=== PATIENT | female | born 1990 | race Caucasian/White ===

== ENCOUNTER 2016-12-19 00:15 | Emergency (ER) | payer SELFPAY ==
[2016-12-19] MEDS ORDERED: NORMAL SALINE 1000 ML 1,000 ML IV ONE (02:34)
[2016-12-19] MEDS ORDERED: ONDANSETRON HCL INJ/PF 4 MG/2 ML SDV IV ONE (02:34)
--- NOTE | 2016-12-19 02:37 | ER Document Report ---
ED General - General Chief Complaint: Toothache Stated Complaint: TOOTHACHE WITH NAUSEA AND VOMITING Time Seen by Provider: 12/19/16 02:24 Notes: Patient is a 26-year-old female who comes emergency department for chief complaint of pain in her left lower tooth where she has a known dental fracture , patient states that she has had symptoms for 3 days, has had increased alcohol intake because of the pain, states she took ibuprofen, her Ativan, Klonopin, and had 2 shots of liquor tonight. She states afterwards she started vomiting, she vomited 6 times. She denies blood in vomit, fever, any particular areas of abdominal pain, she also does report some dysuria with bilateral flank pain. TRAVEL OUTSIDE OF THE [place] IN LAST 30 DAYS: No - Related Data Allergies/Adverse Reactions: erythromycin base [Erythromycin Base] Allergy (Mild, Verified 08/07/15 16:11) VOMITING Past Medical History - Social History Smoking Status: Never Smoker Frequency of alcohol use: Occasional Drug Abuse: None Lives with: Family Family History: Reviewed & Not Pertinent Patient has suicidal ideation: No Patient has homicidal ideation: No - Past Medical History Cardiac Medical History: Reports: Hx Hypertension Renal/ Medical History: Denies: Hx Peritoneal Dialysis Psychiatric Medical History: Reports: Hx Depression Past Surgical History: Reports: Hx Myringotomy - Immunizations Hx Diphtheria, Pertussis, Tetanus Vaccination: Yes Review of Systems - Review of Systems Constitutional: No symptoms reported EENT: See HPI Cardiovascular: No symptoms reported Respiratory: No symptoms reported Gastrointestinal: See HPI Genitourinary: No symptoms reported Female Genitourinary: No symptoms reported Musculoskeletal: No symptoms reported Skin: No symptoms reported Hematologic/Lymphatic: No symptoms reported Neurological/Psychological: No symptoms reported Physical Exam - Vital signs Vitals: Temp Pulse Resp BP Pulse Ox 98.0 F 110 H 20 114/81 98 12/19/16 00:23 12/19/16 00:23 12/19/16 00:23 12/19/16 00:23 12/19/16 00:23 Interpretation: Normal - General General appearance: Anxious In distress: Moderate - Patient vomiting - HEENT Head: Normocephalic, Atraumatic Eyes: Normal Conjunctiva: Normal Extraocular movements intact: Yes Eyelashes: Normal Pupils: PERRL Mouth/Lips: Normal Mucous membranes: Normal Teeth diagram: 1 - Dental caries with no abscess, normal oral exam otherwise Pharynx: Erythema - Mild Neck: Normal - Respiratory Respiratory status: No respiratory distress Chest status: Nontender Breath sounds: Normal Chest palpation: Normal - Cardiovascular Rhythm: Regular, Tachycardia Heart sounds: Normal auscultation, S1 appreciated, S2 appreciated Murmur: No - Abdominal Inspection: Normal Distension: No distension Bowel sounds: Normal Tenderness: Tender - There is mild generalized upper abdominal tenderness with no guarding Organomegaly: No organomegaly - Back Back: Normal, Nontender. No: Tender - Extremities General upper extremity: Normal inspection, Nontender, Normal color, Normal ROM , Normal temperature General lower extremity: Normal inspection, Nontender, Normal color, Normal ROM , Normal temperature, Normal weight bearing. No: Elise's sign - Neurological Neuro grossly intact: Yes Cognition: Normal Orientation: AAOx4 Vinayak Coma Scale Eye Opening: Spontaneous [place] Coma Scale Verbal: Oriented Vinayak Coma Scale Motor: Obeys Commands [place] Coma Scale Total: 15 Speech: Normal Motor strength normal: LUE, RUE, LLE, RLE Sensory: Normal - Psychological Associated symptoms: Anxious - Skin Skin Temperature: Warm Skin Moisture: Dry Skin Color: Normal Course - Re-evaluation Re-evalutation: Patient initially vomiting, has generalized upper abdominal tenderness, after Zofran, patient still vomited, after Benadryl vomiting stopped. Give IV fluids. After this on reevaluation patient sleepy but states she feels much improved. Patient tolerated Pepcid without any difficulty. Patient does appear to have dental caries and suspected infection, she declined a dental block. Treating for dental infection, treating for gastritis which is suspected based on patient's ibuprofen and alcohol use for treatment of her teeth. Laboratory workup is completely unremarkable other than mild alcohol level. Patient's tachycardia resolved. Discussed treatment, discussed follow- up, discussed return precautions, patient states understanding and agreement. - Vital Signs Vital signs: Temp Pulse Resp BP Pulse Ox 97.3 F 75 16 129/85 H 100 12/19/16 06:27 12/19/16 06:27 12/19/16 06:27 12/19/16 06:27 12/19/16 06:27 - Laboratory Result Diagrams: 12/19/16 03:00 12/19/16 03:00 Laboratory results interpreted by me: 12/19/16 12/19/16 12/19/16 03:00 03:00 03:00 WBC 11.0 H RBC 5.30 H MCH 26.7 L RDW 14.5 H Direct Bilirubin 0.5 H Ur Leukocyte Esterase TRACE H Discharge - Discharge Clinical Impression: Tooth pain, Alcohol use Abdominal pain Qualifiers: Abdominal location: unspecified location Qualified Code(s): R10.9 - Unspecified abdominal pain Vomiting Qualifiers: Vomiting type: unspecified Vomiting Intractability: non-intractable Nausea presence: with nausea Qualified Code(s): R11.2 - Nausea with vomiting, unspecified Condition: Stable Disposition: HOME, SELF-CARE Additional Instructions: Your examination is most consistent with gastritis, probably from a combination of the alcohol and anti-inflammatory. Take the penicillin antibiotic as directed for your tooth. Take the provided pain medicine given today if needed, avoid anti-inflammatories, avoid alcohol, take the Zantac as prescribed. Follow-up with primary care, specifically follow-up with a dentist to have this repaired. Return to emergency department for any concerning or worsening symptoms. Prescriptions: Penicillin V Potassium [Penicillin Vk 500 mg Tablet] 500 mg PO BID #20 tablet Promethazine HCl [Phenergan 25 mg Tablet] 1 - 2 tab PO Q6H PRN #15 tablet PRN Reason: Ranitidine HCl [Zantac 150 mg Tablet] 150 mg PO BID #30 tablet Forms: Return to Work
[2016-12-19 03:22] LABS: ABSOLUTE BASOPHILS # (AUTO) 0.1 10^3/uL (0.0-0.2); ABSOLUTE EOSINOPHILS # (AUTO) 0.1 10^3/uL (0.0-0.6); ABSOLUTE LYMPHOCYTES (AUTO) 3.1 10^3/uL (0.5-4.7); ABSOLUTE MONOCYTES (AUTO) 0.4 10^3/uL (0.1-1.4); ABSOLUTE NEUT (AUTO) 7.3 10^3/uL (1.7-8.2); BASOPHILS % (AUTO) 0.7 % (0-2); EOSINOPHILS % (AUTO) 1.1 % (0-6); HEMATOCRIT 42.4 % (36.0-47.0); HEMOGLOBIN 14.2 g/dL (12.0-15.5); HGB HCT DIFFERENCE 0.2; MEAN CORPUSCULAR HEMOGLOBIN 26.7 pg (27.0-33.4); MEAN CORPUSCULAR HGB CONC 33.5 g/dL (32.0-36.0); MEAN CORPUSCULAR VOLUME 80 fl (80-97); MONOCYTES % (AUTO) 3.7 % (3-13); RED CELL DISTRIBUTION WIDTH 14.5 % (11.5-14.0); SEGMENTED NEUTROPHILS % (AUTO) 66.5 % (42-78)
[2016-12-19] MEDS ORDERED: DIPHENHYDRAMINE HCL 50 MG/ML VIAL IV ONE (03:30)
[2016-12-19 03:38] LABS: ALANINE AMINOTRANSFERASE 28 U/L (9-52); ALBUMIN 4.4 g/dL (3.5-5.0); ALCOHOL 75 mg/dL (NONE DETECTED); ALKALINE PHOSPHATASE 76 U/L (38-126); ANION GAP 14 (5-19); ASPARTATE AMINO TRANSFERASE 25 U/L (14-36); BILIRUBIN,DIRECT 0.5 mg/dL (0.0-0.4); BILIRUBIN,TOTAL 0.7 mg/dL (0.2-1.3); BLOOD UREA NITROGEN 9 mg/dL (7-20); CALCIUM 9.7 mg/dL (8.4-10.2); CARBON DIOXIDE 24 mmol/L (22-30); CHLORIDE 105 mmol/L (98-107); CREATININE RESULT 0.65 mg/dL (0.52-1.25); GLUCOSE 102 mg/dL (75-110); LIPASE 66.3 U/L (23-300); POTASSIUM 4.6 mmol/L (3.6-5.0); SODIUM 142.9 mmol/L (137-145); TOTAL PROTEIN 7.9 g/dL (6.3-8.2)
[2016-12-19 03:39] LABS: APPEARANCE,URINE CLOUDY; BILIRUBIN,URINE NEGATIVE (NEGATIVE); GLUCOSE, URINE NEGATIVE (NEGATIVE); KETONES,URINE NEGATIVE (NEGATIVE); LEUKOCYTE ESTERASE,URINE TRACE (NEGATIVE); NITRITE,URINE NEGATIVE (NEGATIVE); PROTEIN,URINE NEGATIVE (NEGATIVE); URINE SPECIFIC GRAVITY 1.002; UROBILINOGEN,URINE NEGATIVE mg/dL (<2.0)
[2016-12-19] MEDS ORDERED: FAMOTIDINE 20 MG TABLET PO ONE (05:19)
[2016-12-19] MEDS ORDERED: ONDANSETRON ODT 4 MG TAB (6 TAB/DSPK) PO PRN (05:53)
[2016-12-19] MEDS ORDERED: PENICILLIN V POTASSIUM 500 MG TABLET PO ONE (06:40)
[2016-12-19] MEDS ORDERED: HYDROCODONE/ACETAMINOPHEN 5-325 MG 6 TAB/DSPK PO PRN (06:44)
[2016-12-19 08:51] VITALS: BP 118/79
== END 2016-12-19 08:43 | disposition home or self-care (01) ==
LOC: ER 00:15
DX: K02.9 Dental caries, unspecified (principal); K08.89 Other specified disorders of teeth and supporting structures; R11.2 Nausea with vomiting, unspecified; R30.0 Dysuria; R10.9 Unspecified abdominal pain; I10 Essential (primary) hypertension; R00.0 Tachycardia, unspecified; Z79.899 Other long term (current) drug therapy; Z72.89 Other problems related to lifestyle; Z88.1 Allergy status to other antibiotic agents
CPT/HCPCS: 99283; 96374; 96375; 36415; 80307; 83690; 84703; 85025; 80053; 81001; J1200; J2405; J7030

== ENCOUNTER 2017-05-06 23:50 | Emergency (ER) | payer SELFPAY ==
--- NOTE | 2017-05-07 00:52 | RADIOLOGY REPORT (SQ) ---
EXAM DESCRIPTION: FOOT RIGHT 2 VIEWS CLINICAL HISTORY: 27 years, Female, NAIL IN FOOT COMPARISON: None. NUMBER OF VIEWS: 2 TECHNIQUE: Todd radiographic technique. LIMITATIONS: None. FINDINGS: Talus screw extends into the subcutaneous plantar soft tissue of the left foot. No fractures or osteomyelitis. IMPRESSION: Intact metallic screw foreign bodies described above. No fracture. 2010 [facility] in [place] [employer]- All Rights Reserved
--- NOTE | 2017-05-07 01:38 | ER Document Report ---
ED Foreign Body - General Mode of Arrival: Ambulatory Information source: Patient TRAVEL OUTSIDE OF THE [place] IN LAST 30 DAYS: No - General Chief Complaint: Puncture Wound to Foot Stated Complaint: STEPPED ON NAIL Time Seen by Provider: 05/07/17 01:35 Notes: Patient is a 27-year-old female who presents to the emergency department today secondary to stepping on a drywall screw prior to arrival. Patient was barefoot when she stepped on the screw. Patient states she attempted to unscrew the screw but the pain was too severe to continue. (LINA OLMSTEAD) Patient states she was barefoot walking in her bathroom that she was remodeling on a tile floor when she stepped on the sheet rock screw. She complains of severe pain in the foot going up the leg. She states she tried to remove the screw by trying to twist it to back it out, but was unable to because of the extreme pain. (AMANDA DOMINGUEZ) - Related Data Allergies/Adverse Reactions: erythromycin base [Erythromycin Base] Allergy (Mild, Verified 08/07/15 16:11) VOMITING Past Medical History - General Information source: Patient - Social History Smoking Status: Current Every Day Smoker Cigarette use (# per day): Yes Lives with: Family Family History: Reviewed & Not Pertinent Patient has suicidal ideation: No Patient has homicidal ideation: No - Past Medical History Cardiac Medical History: Reports: Hx Hypertension Psychiatric Medical History: Reports: Hx Depression Past Surgical History: Reports: Hx Myringotomy - Immunizations Hx Diphtheria, Pertussis, Tetanus Vaccination: Yes Review of Systems - Review of Systems Constitutional: No symptoms reported EENT: No symptoms reported Cardiovascular: No symptoms reported Respiratory: No symptoms reported Gastrointestinal: No symptoms reported Genitourinary: No symptoms reported Female Genitourinary: No symptoms reported Musculoskeletal: No symptoms reported Skin: See HPI, Other - screw in sole of right foot Hematologic/Lymphatic: No symptoms reported Neurological/Psychological: No symptoms reported -: Yes All other systems reviewed and negative Physical Exam - Vital signs Vitals: Temp Pulse Resp BP Pulse Ox 98 F 108 H 16 151/107 H 99 05/07/17 00:03 05/07/17 00:03 05/07/17 00:03 05/07/17 00:03 05/07/17 00:03 - Notes Notes: Physical Exam: General: Alert, appears uncomfortable. HEENT: Normocephalic. Atraumatic. PERRLA. Extraocular movements intact. Oropharynx clear. Neck: Supple. Respiratory: No respiratory distress. Abdominal: Normal Inspection. No distension. Extremities: Moves all four extremities. Drywall screw in sole of right foot at the junction of middle and posterior 1/3 of foot. Screw is angulated at approximately 45 towards calcaneus. Neurological: Normal cognition. AAOx4. Normal speech. Psychological: Normal affect. Normal Mood. Skin: Warm. Dry. Normal color. (LINA OLMSTEAD) Course - Re-evaluation Re-evalutation: 05/07/17 02:15 PROCEEDURE: The right foot plantar surface around the sheet rock screw insertion area was prepped with Betadine, then wiped clean with alcohol wipes. The skin and deeper subcutaneous tissue was anesthetized with 2 mL's of 1% lidocaine. The screw was easily backed out with probably 2 rotations in the counterclockwise fashion. The wound opening was slightly enlarged and explored with no debris found. The tract did not seem to go in more than 3-4 mm at the most. While prepping the area, the slightest bump of the screw because the patient does scream like the screw went in quite deep, and she claimed it caused pain to go all the way to her leg. It turned out the screw was barely past the skin surface. (AMANDA DOMINGUEZ) - Vital Signs Vital signs: Temp Pulse Resp BP Pulse Ox 98 F 108 H 16 151/107 H 99 05/07/17 00:03 05/07/17 00:03 05/07/17 00:03 05/07/17 00:03 05/07/17 00:03 Discharge - Discharge Clinical Impression: Foreign body in foot, right Qualifiers: Encounter type: initial encounter Qualified Code(s): S90.851A - Superficial foreign body, right foot, initial encounter High blood pressure Qualifiers: Hypertension type: essential hypertension Qualified Code(s): I10 - Essential ( primary) hypertension Condition: Stable Disposition: HOME, SELF-CARE Additional Instructions: Take the antibiotics as prescribed. Elevate your foot and limit walking on it as much as possible. Take the pain medication is dispensed tonight if needed. Take ibuprofen or Aleve for pain for the next few days as needed. Follow-up with local medical doctor if not improving. Return if any swelling, redness or fever. RETURN TO THE EMERGENCY ROOM IF ANY NEW OR WORSENING SYMPTOMS. Prescriptions: Cephalexin Monohydrate [Keflex 500 mg Capsule] 500 mg PO QID #20 capsule Forms: Return to Work Scribe Attestation: 05/07/17 02:14 I personally performed the services described in the documentation, reviewed and edited the documentation which was dictated to the scribe in my presence, and it accurately records my words and actions. (AMANDA DOMINGUEZ) Scribe Documentation - Scribe Written by Leatha:: Leatha Carson, 05/07/2017 0145 acting as scribe for :: Suni
[2017-05-07] MEDS ORDERED: LIDOCAINE 1% INJ-PF (10 MG/ML) 30 ML SDV INJ ONE (01:43)
[2017-05-07] MEDS ORDERED: CEPHALEXIN 500 MG CAPSULE PO ONE (02:09)
[2017-05-07] MEDS ORDERED: HYDROCODONE/ACETAMINOPHEN 5-325 MG 6 TAB/DSPK PO PRN (02:10)
[2017-05-07 02:35] VITALS: BP 145/91
== END 2017-05-07 02:46 | disposition home or self-care (01) ==
LOC: ER 23:50
DX: S90.851A Superficial foreign body, right foot, initial encounter (principal); I10 Essential (primary) hypertension; W22.09XA Striking against other stationary object, initial encounter; Y93.H3 Activity, building and construction; Z88.3 Allergy status to other anti-infective agents; F17.210 Nicotine dependence, cigarettes, uncomplicated
CPT/HCPCS: 99283; 73620; J3490

== ENCOUNTER 2017-08-03 15:51 | Emergency (ER) | payer SELFPAY ==
--- NOTE | 2017-08-03 17:27 | ER Document Report ---
ED General - General Chief Complaint: Back Pain Stated Complaint: LOWER BACK PAIN Mode of Arrival: Ambulatory Information source: Patient Notes: 27-year-old female presents with complaints of back pain nausea vomiting. Patient admits that it hi when she urinates. Patient denies any fevers or chills TRAVEL OUTSIDE OF THE [place] IN LAST 30 DAYS: No - HPI Onset: Other Onset/Duration: Persistent Quality of pain: Achy Severity: Mild Pain Level: 1 Associated symptoms: Diarrhea, Nausea, Vomiting Exacerbated by: Denies Relieved by: Denies Similar symptoms previously: No Recently seen / treated by doctor: No - Related Data Allergies/Adverse Reactions: erythromycin base [Erythromycin Base] Allergy (Mild, Verified 08/03/17 15:54) VOMITING Past Medical History - Social History Smoking Status: Never Smoker Cigarette use (# per day): No Chew tobacco use (# tins/day): No Smoking Education Provided: No Family History: Reviewed & Not Pertinent - Past Medical History Cardiac Medical History: Reports: Hx Hypertension Renal/ Medical History: Denies: Hx Peritoneal Dialysis Psychiatric Medical History: Reports: Hx Depression Past Surgical History: Reports: Hx Myringotomy - Immunizations Hx Diphtheria, Pertussis, Tetanus Vaccination: Yes Review of Systems - Review of Systems Notes: REVIEW OF SYSTEMS: CONSTITUTIONAL : Denies fever, chills, or sweats. Denies recent illness. EENT: Denies eye, ear, throat, or mouth pain or symptoms. Denies nasal or sinus congestion or discharge. Denies throat, tongue, or mouth swelling or difficulty swallowing. CARDIOVASCULAR: Denies chest pain. Denies palpitations or racing or irregular heart beat. Denies ankle edema. RESPIRATORY: Denies cough, cold, or chest congestion. Denies shortness of breath, difficulty breathing, or wheezing. GASTROINTESTINAL: Admits to abdominal pain flank pain GENITOURINARY: Admits to burning on urination FEMALE GENITOURINARY: Denies vaginal bleeding, heavy or abnormal periods, irregular periods. Denies vaginal discharge or odor. MUSCULOSKELETAL: Denies back or neck pain or stiffness. Denies joint pain or swelling. SKIN: Denies rash, lesions or sores. HEMATOLOGIC : Denies easy bruising or bleeding. LYMPHATIC: Denies swollen, enlarged glands. NEUROLOGICAL: Denies confusion or altered mental status. Denies passing out or loss of consciousness. Denies dizziness or lightheadedness. Denies headache. Denies weakness or paralysis or loss of use of either side. Denies problems with gait or speech. Denies sensory loss, numbness, or tingling. Denies seizures. PSYCHIATRIC: Denies anxiety or stress. Denies depression, suicidal ideation, or homicidal ideation. ALL OTHER SYSTEMS REVIEWED AND NEGATIVE. PHYSICAL EXAMINATION: GENERAL: Well-appearing, well-nourished and in no acute distress. HEAD: Atraumatic, normocephalic. EYES: Pupils equal round and reactive to light, extraocular movements intact, conjunctiva are normal. ENT: Nares patent, oropharynx clear without exudates. Moist mucous membranes. NECK: Normal range of motion, supple without lymphadenopathy LUNGS: Breath sounds clear to auscultation bilaterally and equal. No wheezes rales or rhonchi. HEART: Regular rate and rhythm without murmurs ABDOMEN: Soft, nontender, nondistended abdomen. No guarding, no rebound. No masses appreciated. Mild CVA tenderness bilateral Female : deferred Musculoskeletal: Normal range of motion, no pitting or edema. No cyanosis. NEUROLOGICAL: Cranial nerves grossly intact. Normal speech, normal gait. Normal sensory, motor exams PSYCH: Normal mood, normal affect. SKIN: Warm, Dry, normal turgor, no rashes or lesions noted. Dictation was performed using [employer] voice recognition software Physical Exam - Vital signs Vitals: Temp Pulse Resp BP Pulse Ox 98.7 F 90 18 140/100 H 98 08/03/17 16:09 08/03/17 16:09 08/03/17 16:09 08/03/17 16:09 08/03/17 16:09 Course - Re-evaluation Re-evalutation: 08/03/17 19:05 Patient's presentation is quite benign, urinalysis is consistent with an early infection, I have very low suspicion for any life-threatening issue, vital signs are stable she looks well and has been watched in the emergency department for approximately 3 hours. After performing a Medical Screening Examination, I estimate there is LOW risk for ACUTE APPENDICITIS, BOWEL OBSTRUCTION, ACUTE CHOLECYSTITIS, PERFORATED DIVERTICULITIS, INCARCERATED HERNIA, PANCREATITIS, PELVIC INFLAMMATORY DISEASE, PERFORATED ULCER, ECTOPIC , or TUBO-OVARIAN ABSCESS, thus I consider the discharge disposition reasonable. Also, there is no evidence or peritonitis , sepsis, or toxicity. I have reevaluated this patient multiple times and no significant life threatening changes are noted. The patient and I have discussed the diagnosis and risks, and we agree with discharging home with close follow-up with the understanding that symptoms and presentations can change. We also discussed returning to the Emergency Department immediately if new or worsening symptoms occur. We have discussed the symptoms which are most concerning (e.g., bloody stool, fever, changing or worsening pain, vomiting) that necessitate immediate return. - Vital Signs Vital signs: Temp Pulse Resp BP Pulse Ox 98.7 F 90 18 140/100 H 98 08/03/17 16:09 08/03/17 16:09 08/03/17 16:09 08/03/17 16:09 08/03/17 16:09 - Laboratory Laboratory results interpreted by me: 08/03/17 16:00 Urine Protein 30 H Urine Urobilinogen 2.0 H Ur Leukocyte Esterase TRACE H Discharge - Discharge Clinical Impression: Nausea vomiting and diarrhea UTI (urinary tract infection) Qualifiers: Urinary tract infection type: acute cystitis Hematuria presence: without hematuria Qualified Code(s): N30.00 - Acute cystitis without hematuria Condition: Stable Disposition: HOME, SELF-CARE Instructions: Vomiting, or Child ([facility]) Additional Instructions: Follow up with your physician tomorrow for further care or return to the ED IMMEDIATELY if symptoms worsen or new concerns occur. If you cannot afford to follow up with your primary care physician a list of low cost clinics have been provided at the end of your discharge papers as well. Prescriptions: Ciprofloxacin HCl [Cipro 500 mg Tablet] 500 mg PO BID #10 tablet Dicyclomine HCl [Bentyl 20 mg Tablet] 20 mg PO QID #40 tablet Hydrocodone/Acetaminophen [[place] 5-325 mg Tablet] 1 tab PO Q6 #10 tablet Promethazine HCl [Phenergan 25 mg Tablet] 1 - 2 tab PO Q6H PRN #15 tablet PRN Reason:
[2017-08-03] MEDS ORDERED: KETOROLAC TROMETHAMINE 60 MG/2 ML SDV IM ONE (17:41)
[2017-08-03] MEDS ORDERED: METOCLOPRAMIDE HCL 10 MG TABLET PO ONE (17:42)
[2017-08-03 18:18] LABS: APPEARANCE,URINE CLOUDY; BILIRUBIN,URINE NEGATIVE (NEGATIVE); GLUCOSE, URINE NEGATIVE (NEGATIVE); KETONES,URINE NEGATIVE (NEGATIVE); LEUKOCYTE ESTERASE,URINE TRACE (NEGATIVE); NITRITE,URINE NEGATIVE (NEGATIVE); PROTEIN,URINE 30 mg/dL (NEGATIVE); URINE SPECIFIC GRAVITY 1.033
[2017-08-03 18:22] LABS: COLOR,URINE YELLOW
[2017-08-03 19:13] VITALS: BP 145/120
[2017-08-03] MEDS ORDERED: HYDROCODONE/ACETAMINOPHEN 5-325 MG (6 TAB/ER DISP) PO PRN (20:17)
== END 2017-08-03 19:15 | disposition home or self-care (01) ==
LOC: ER 15:51
DX: N30.00 Acute cystitis without hematuria (principal); M54.5 Low back pain; R11.2 Nausea with vomiting, unspecified; R19.7 Diarrhea, unspecified; I10 Essential (primary) hypertension; Z88.3 Allergy status to other anti-infective agents
CPT/HCPCS: 99283; 81025; 81001; J1885

== ENCOUNTER 2018-01-28 01:49 | Emergency (ER) | payer SELFPAY ==
[2018-01-28] MEDS ORDERED: BUPIVACAINE HCL 0.75% INJ/PF (7.5 MG/1 ML) 10 ML SDV INJ ONE (02:03)
[2018-01-28 02:13] VITALS: BP 158/118
--- NOTE | 2018-01-28 02:19 | ER Document Report ---
ED Oral Problem - General Chief Complaint: Toothache Stated Complaint: TOOTHACHE Time Seen by Provider: 01/28/18 01:56 Notes: Patient is a 27-year-old female that comes emergency department for chief complaint of pain in her left lower jaw, she states that she was seen for tooth pain at [facility], prescribed Ceftin and [place] for pain, she states that she took the medication and her tooth was still hurting so she decided to try to pull it with pliers, she broke part of the tooth off but then when she tried to get the rest of the tooth out the pain became too severe. She comes by EMS, was given 200 mcg of fentanyl en route. She states she does not have a dentist. TRAVEL OUTSIDE OF THE [place] IN LAST 30 DAYS: No - Related Data Allergies/Adverse Reactions: erythromycin base [Erythromycin Base] Allergy (Mild, Verified 08/03/17 15:54) VOMITING Past Medical History - General Information source: Patient - Social History Smoking Status: Current Every Day Smoker Chew tobacco use (# tins/day): No Frequency of alcohol use: None Drug Abuse: None Lives with: Family Family History: Reviewed & Not Pertinent Patient has suicidal ideation: No Patient has homicidal ideation: No - Past Medical History Cardiac Medical History: Reports: Hx Hypertension Renal/ Medical History: Denies: Hx Peritoneal Dialysis Psychiatric Medical History: Reports: Hx Bipolar Disorder, Hx Depression Past Surgical History: Reports: Hx Myringotomy - Immunizations Hx Diphtheria, Pertussis, Tetanus Vaccination: Yes Review of Systems - Review of Systems Constitutional: No symptoms reported EENT: See HPI Cardiovascular: No symptoms reported Respiratory: No symptoms reported Gastrointestinal: No symptoms reported Genitourinary: No symptoms reported Female Genitourinary: No symptoms reported Musculoskeletal: No symptoms reported Skin: No symptoms reported Hematologic/Lymphatic: No symptoms reported Neurological/Psychological: No symptoms reported Physical Exam - Vital signs Vitals: Temp Pulse Resp BP Pulse Ox 98.8 F 104 H 18 158/118 H 97 01/28/18 02:10 01/28/18 02:10 01/28/18 02:10 01/28/18 02:10 01/28/18 02:10 - Notes Notes: GENERAL: Anxious, tearful, sobbing HEAD: Normocephalic, atraumatic. EYES: Pupils equal, round, and reactive to light. Extraocular movements intact. ENT: Dental fracture at tooth number 20 with dental caries behind this. No current bleeding, no swelling, no abscess, normal oropharyngeal exam with clear airway and normal uvula. NECK: Full range of motion. Supple. Trachea midline. LUNGS: Clear to auscultation bilaterally, no wheezes, rales, or rhonchi. No respiratory distress. HEART: Regular rate and rhythm. No murmur ABDOMEN: Soft, non-tender. Non-distended. Bowel sounds present in all 4 quadrants. EXTREMITIES: Moves all 4 extremities spontaneously. No edema, normal radial and dorsalis pedis pulses bilaterally. No cyanosis. BACK: no cervical, thoracic, lumbar midline tenderness. No saddle anesthesia, normal distal neurovascular exam. NEUROLOGICAL: Alert and oriented x3. Normal speech. [cranial nerves II through XII grossly intact]. PSYCH: Anxious, agitated, difficult to console SKIN: Warm, dry, normal turgor. No rashes or lesions noted. Course - Re-evaluation Re-evalutation: Patient very tearful, sobbing, states that she has not been able to eat anything all day and feels lightheaded. Blood sugar checked and was normal. Offered her a dental block that way she could eat more comfortably, she did agree to this. Patient will be placed on antibiotics, provided with pain medication, she will be referred to local dentist for extraction. Discussed this with patient. Went by patient's room, she was smiling, well-appearing, appeared to be taking pictures of herself with her phone. Nurse came to me and reported that patient was angry and upset, I went to the patient's room, she states he does not feel any better than before, after discussion patient will be given lidocaine to apply topically to the area for additional comfort. Asked if patient had any more concerns or questions, she states she does not. Discharged with follow-up instructions. - Vital Signs Vital signs: Temp Pulse Resp BP Pulse Ox 98.8 F 104 H 18 158/118 H 97 01/28/18 02:10 01/28/18 02:10 01/28/18 02:10 01/28/18 02:10 01/28/18 02:10 - Laboratory Laboratory results interpreted by me: 01/28/18 02:06 POC Glucose 126 H Discharge - Discharge Clinical Impression: Pain, dental Broken tooth injury Qualifiers: Encounter type: initial encounter Fracture type: closed Qualified Code(s): S02.5XXA - Fracture of tooth (traumatic), initial encounter for closed fracture Condition: Stable Disposition: HOME, SELF-CARE Additional Instructions: Continue your antibiotic and pain medicine as prescribed earlier today. Call the dental referral listed below to set up follow-up and likely extraction. Return to the emergency department for any concerning or worsening symptoms including swelling of the face, fever, etc. [facility] [address], [address] Forms: Return to Work
[2018-01-28] MEDS ORDERED: METOCLOPRAMIDE HCL INJ/PF 10 MG/2 ML SDV IV ONE (02:37)
[2018-01-28] MEDS ORDERED: LIDOCAINE 2% VISCOUS SOLN 20 ML UDCUP PO ONE (03:01)
== END 2018-01-28 03:00 | disposition home or self-care (01) ==
LOC: ER 01:49
DX: S02.5XXA Fracture of tooth (traumatic), initial encounter for closed fracture (principal); X58.XXXA Exposure to other specified factors, initial encounter; Y93.89 Activity, other specified; Y92.009 Unspecified place in unspecified non-institutional (private) residence as the place of occurrence of the external cause; K08.89 Other specified disorders of teeth and supporting structures; I10 Essential (primary) hypertension; F41.9 Anxiety disorder, unspecified; R42 Dizziness and giddiness; F17.200 Nicotine dependence, unspecified, uncomplicated; Z88.1 Allergy status to other antibiotic agents
CPT/HCPCS: 96374; 99283; 82962; 64400; J3490; J2765

== ENCOUNTER 2018-03-23 13:23 | Observation (INO) | payer SELFPAY ==
[2018-03-23] MEDS ORDERED: OXYCODONE-ACETAMINOPHEN 5-325 MG TABLET PO ONE (14:35)
[2018-03-23] MEDS ORDERED: AMPICILLIN SOD/SULBACTAM 3 GM VIAL IV ONE (14:37)
[2018-03-23] MEDS ORDERED: CIPROFLOXACIN HCL 500 MG TABLET PO ONE (14:38)
[2018-03-23] MEDS ORDERED: DIPH/PERTUSS(ACELL)/TETANUS VAC/PF 0.5 ML SYR (>=10YO) IM ONE (14:41)
--- NOTE | 2018-03-23 14:42 | ER Document Report ---
ED General - General Chief Complaint: Foot Injury Stated Complaint: FALL/RIGHT TOE PAIN Time Seen by Provider: 03/23/18 14:10 Mode of Arrival: Ambulatory Information source: Patient Notes: 28-year-old female with hypertension presents with complaint of right foot pain. Patient states that yesterday evening she fell backwards striking her back and hitting her foot on a dresser. She states after that her cat attacked her foot and bit her several times. Patient complaining of extreme pain of her right fourth toe. She denies any head injury, LOC, fever, chills, nausea, vomiting, history of MRSA. Patient is concerned because she states her has not been vaccinated. She does not report any behavior, recent illness of her cat. Patient is very tearful but denies depression, suicidal, homicidal ideation. TRAVEL OUTSIDE OF THE [place] IN LAST 30 DAYS: No - HPI Onset: Yesterday Onset/Duration: Gradual, Persistent, Worse Quality of pain: Achy, Throbbing Severity: Moderate Associated symptoms: denies: Nausea, Vomiting Exacerbated by: Movement, Walking Relieved by: Remaining still Similar symptoms previously: No Recently seen / treated by doctor: No - Related Data Allergies/Adverse Reactions: erythromycin base [Erythromycin Base] Allergy (Mild, Verified 03/23/18 13:26) VOMITING Past Medical History - General Information source: Patient, [facility] Records - Social History Smoking Status: Current Every Day Smoker Cigarette use (# per day): Yes - 15 Chew tobacco use (# tins/day): No Smoking Education Provided: Yes - 4 minutes of smoking cessation provided Frequency of alcohol use: Occasional Drug Abuse: None Lives with: Family Family History: Reviewed & Not Pertinent Patient has suicidal ideation: No Patient has homicidal ideation: No - Past Medical History Cardiac Medical History: Reports: Hx Hypertension Renal/ Medical History: Denies: Hx Peritoneal Dialysis Psychiatric Medical History: Reports: Hx Bipolar Disorder, Hx Depression Past Surgical History: Reports: Hx Myringotomy - Immunizations Hx Diphtheria, Pertussis, Tetanus Vaccination: Yes Review of Systems - Review of Systems Notes: REVIEW OF SYSTEMS: CONSTITUTIONAL : Denies fever, chills, or sweats. Denies recent illness. Denies weight loss, recent hospitalizations. EENT: Denies visual changes, eye pain. Denies nasal or sinus congestion or discharge. Denies sore throat, oral lesions, difficulty swallowing. CARDIOVASCULAR: Denies chest pain. Denies palpitations. Denies lower extremity edema. RESPIRATORY: Denies cough, cold, or chest congestion. Denies shortness of breath, wheezing. GASTROINTESTINAL: Denies abdominal pain or distention. Denies nausea, vomiting , or diarrhea. Denies blood in vomitus, stools, or per rectum. Denies black, tarry stools. Denies constipation. GENITOURINARY: Denies difficulty urinating, painful urination, frequency, blood in urine, or vaginal discharge. MUSCULOSKELETAL: Denies back or neck pain or stiffness. SKIN: Denies rash, lesions or sores. HEMATOLOGIC : Denies easy bruising or bleeding. LYMPHATIC: Denies swollen glands. NEUROLOGICAL: Denies confusion or altered mental status. Denies passing out or loss of consciousness. Denies dizziness or lightheadedness. Denies headache. Denies weakness or paralysis. Denies problems difficulty with ambulation, slurred speech. Denies sensory loss, numbness, or tingling. Denies seizures. PSYCHIATRIC: Denies anxiety or stress. Denies depression, suicidal ideation, or homicidal ideation. Denies visual or auditory hallucinations. Physical Exam - Vital signs Vitals: Temp Pulse Resp BP Pulse Ox 98.2 F 97 16 124/92 H 100 03/23/18 13:33 03/23/18 13:33 03/23/18 13:33 03/23/18 13:33 03/23/18 13:33 - Notes Notes: PHYSICAL EXAMINATION: GENERAL: Crying, well-appearing, well-nourished and in no acute distress. HEAD: Atraumatic, normocephalic. EYES: Pupils equal round and reactive to light, extraocular movements intact, conjunctiva are normal. ENT: Nares patent, oropharynx clear without exudates. Moist mucous membranes. NECK: Normal range of motion, supple without lymphadenopathy LUNGS: Breath sounds clear to auscultation bilaterally and equal. No wheezes rales or rhonchi. HEART: Regular rate and rhythm without murmurs ABDOMEN: Soft, nontender, nondistended abdomen. No guarding, no rebound. No masses appreciated. Female : deferred Musculoskeletal: Right fourth toe-erythematous, swollen, tender to palpation, no deformity. Right foot with multiple scabbed bite- lesions with associated erythematous streaking up the right leg. Patient complaining of pain at the bite sites. NEUROLOGICAL: Cranial nerves grossly intact. Normal speech, normal gait. Normal sensory, motor exams PSYCH: Tearful, anxious. SKIN: Warm, Dry, normal turgor, no rashes or lesions noted. Course - Re-evaluation Re-evalutation: 03/23/18 16:30 Laboratory 03/23/18 03/23/18 03/23/18 15:20 15:20 15:20 WBC 10.2 RBC 4.77 Hgb 13.6 Hct 39.4 MCV 83 MCH 28.5 MCHC 34.5 RDW 14.8 H Plt Count 447 Seg Neutrophils % 58.8 Lymphocytes % 30.8 Monocytes % 7.3 Eosinophils % 2.5 Basophils % 0.6 Absolute Neutrophils 6.0 Absolute Lymphocytes 3.2 Absolute Monocytes 0.7 Absolute Eosinophils 0.3 Absolute Basophils 0.1 Sodium 141.5 Potassium 4.6 Chloride 103 Carbon Dioxide 25 Anion Gap 14 BUN 9 Creatinine 0.64 Est GFR ( Amer) > 60 Est GFR (Non-Af Amer) > 60 Glucose 84 Calcium 9.7 C-Reactive Protein 18.3 H Urine Color STRAW Urine Appearance CLEAR Urine pH 6.0 Ur Specific [place] 1.004 Urine Protein NEGATIVE Urine Glucose (UA) NEGATIVE Urine Ketones NEGATIVE Urine Blood NEGATIVE Urine Nitrite NEGATIVE Urine Bilirubin NEGATIVE Urine Urobilinogen NEGATIVE Ur Leukocyte Esterase NEGATIVE Urine WBC (Auto) 0 Urine RBC (Auto) 0 Squamous Epi Cells Auto <1 Urine Mucus (Auto) RARE Urine Ascorbic Acid NEGATIVE Urine HCG, Qual NEGATIVE Foot X-Ray 03/23/18 14:27 IMPRESSION: NEGATIVE STUDY OF THE RIGHT FOOT. NO RADIOGRAPHIC EVIDENCE OF ACUTE INJURY. 28-year-old female with hypertension presents with complaint of right foot pain. She states that yesterday evening she fell striking her foot against her dresser. Since that time she has had extreme pain of the right fourth toe. She states that when she fell her cat "freaked out" and bit her multiple times. Patient is complaining of pain at the bite sites as well as her right fourth toe. Vital signs stable upon arrival. Patient is afebrile, mildly hypertensive. She is extremely tearful but cannot tell me why. Exam is significant for erythematous streaking from 1 of the bite sites, and erythematous, tender and swollen right fourth toe. X-rays negative for fracture. Patient's tetanus was updated. Percocet was provided for pain, and patient received IV unasyn. Blood cultures pending. Patient without a elevated white count. Patient does have a elevated CRP. CMP is without electrolyte abnormalities. Because this is a cat bite and notoriously requires IV antibiotics I feel admission for this patient is appropriate at this time. Hospitalist Dr. Mcneal has accepted the patient for admission. 03/23/18 16:31 03/23/18 22:57 - Vital Signs Vital signs: Temp Pulse Resp BP Pulse Ox 97.9 F 101 H 16 102/62 99 03/23/18 19:48 03/23/18 19:48 03/23/18 19:48 03/23/18 19:48 03/23/18 19:48 - Laboratory Result Diagrams: 03/23/18 15:20 03/23/18 15:20 Laboratory results interpreted by me: 03/23/18 03/23/18 15:20 15:20 RDW 14.8 H C-Reactive Protein 18.3 H - Diagnostic Test Radiology reviewed: Image reviewed, Reports reviewed Discharge - Discharge Clinical Impression: Cellulitis of right foot, Cat bite involving extremity, Elevated C-reactive protein (CRP) Contusion of toe of right foot Qualifiers: Encounter type: initial encounter Toe: lesser toe Damage to nail status: without damage Qualified Code(s): S90.121A - Contusion of right lesser toe(s) without damage to nail, initial encounter Condition: Good Disposition: ADMITTED OBSERVATION Admitting Provider: Hospitalist
--- NOTE | 2018-03-23 15:04 | RADIOLOGY REPORT (SQ) ---
EXAM DESCRIPTION: FOOT RIGHT COMPLETE COMPLETED DATE/TIME: 03/23/2018 2:54 pm REASON FOR STUDY: toe pain COMPARISON: None. NUMBER OF VIEWS: Three views. TECHNIQUE: AP, lateral and oblique radiographic images acquired of the right foot. LIMITATIONS: None. FINDINGS: MINERALIZATION: Normal. BONES: No acute fracture or dislocation. No worrisome bone lesions. JOINTS: No effusions. SOFT TISSUES: No soft tissue swelling. No foreign body. OTHER: No other significant finding. IMPRESSION: NEGATIVE STUDY OF THE RIGHT FOOT. NO RADIOGRAPHIC EVIDENCE OF ACUTE INJURY. TECHNICAL DOCUMENTATION: JOB ID: [id number] [employer]- All Rights Reserved Reading location - IP/workstation name: [email or web address]
[2018-03-23 15:56] LABS: ABSOLUTE BASOPHILS # (AUTO) 0.1 10^3/uL (0.0-0.2); ABSOLUTE EOSINOPHILS # (AUTO) 0.3 10^3/uL (0.0-0.6); ABSOLUTE LYMPHOCYTES (AUTO) 3.2 10^3/uL (0.5-4.7); ABSOLUTE MONOCYTES (AUTO) 0.7 10^3/uL (0.1-1.4); BASOPHILS % (AUTO) 0.6 % (0-2); EOSINOPHILS % (AUTO) 2.5 % (0-6); HEMATOCRIT 39.4 % (36.0-47.0); HEMOGLOBIN 13.6 g/dL (12.0-15.5); LYMPHOCYTES % (AUTO) 30.8 % (13-45); MEAN CORPUSCULAR HEMOGLOBIN 28.5 pg (27.0-33.4); MEAN CORPUSCULAR HGB CONC 34.5 g/dL (32.0-36.0); MEAN CORPUSCULAR VOLUME 83 fl (80-97); MONOCYTES % (AUTO) 7.3 % (3-13); PLATELET COUNT 447 10^3/uL (150-450); RED BLOOD COUNT 4.77 10^6/uL (3.72-5.28); RED CELL DISTRIBUTION WIDTH 14.8 % (11.5-14.0); SEGMENTED NEUTROPHILS % (AUTO) 58.8 % (42-78); TOTAL CELLS COUNTED % (AUTO) 100 %; WHITE BLOOD COUNT 10.2 10^3/uL (4.0-10.5)
[2018-03-23 16:07] LABS: APPEARANCE,URINE CLEAR; BILIRUBIN,URINE NEGATIVE (NEGATIVE); COLOR,URINE STRAW; GLUCOSE, URINE NEGATIVE (NEGATIVE); KETONES,URINE NEGATIVE (NEGATIVE); LEUKOCYTE ESTERASE,URINE NEGATIVE (NEGATIVE); NITRITE,URINE NEGATIVE (NEGATIVE); PROTEIN,URINE NEGATIVE (NEGATIVE); URINE SPECIFIC GRAVITY 1.004; UROBILINOGEN,URINE NEGATIVE mg/dL (<2.0)
[2018-03-23 16:12] LABS: ANION GAP 14 (5-19); BLOOD UREA NITROGEN 9 mg/dL (7-20); C-REACTIVE PROTEIN 18.3 mg/L (<10.0); CALCIUM 9.7 mg/dL (8.4-10.2); CARBON DIOXIDE 25 mmol/L (22-30); CHLORIDE 103 mmol/L (98-107); GLUCOSE 84 mg/dL (75-110); POTASSIUM 4.6 mmol/L (3.6-5.0); SODIUM 141.5 mmol/L (137-145)
[2018-03-23] MEDS ORDERED: PRENATAL VITAMIN W DHA CAPSULE PO ONE ×2 (17:15→19:51)
[2018-03-23] MEDS: FAMOTIDINE 20 MG TABLET PO SCH (18:59)
[2018-03-23] MEDS: DICYCLOMINE HCL 20 MG TABLET PO SCH ×2 (18:59→22:52)
[2018-03-23] MEDS: CYCLOBENZAPRINE HCL 10 MG TABLET PO SCH (19:17)
[2018-03-23] MEDS: MORPHINE SULFATE 10 MG/ML INJ IV PRN (20:33)
[2018-03-23] MEDS: OXYCODONE-ACETAMINOPHEN 5-325 MG TABLET PO PRN (21:37)
[2018-03-24] MEDS ORDERED: HYDROMORPHONE HCL INJ/PF 2 MG/ML AMPULE IV ONE (00:30)
[2018-03-24] MEDS ORDERED: NICOTINE 21 MG/24 HR PATCH.TD24 ONE (01:38)
[2018-03-24] MEDS: OXYCODONE-ACETAMINOPHEN 5-325 MG TABLET PO PRN ×3 (04:05→18:45)
[2018-03-24 05:53] LABS: HEMOGLOBIN 12.6 g/dL (12.0-15.5); MEAN CORPUSCULAR HEMOGLOBIN 28.4 pg (27.0-33.4); MEAN CORPUSCULAR HGB CONC 34.2 g/dL (32.0-36.0); MEAN CORPUSCULAR VOLUME 83 fl (80-97); PLATELET COUNT 391 10^3/uL (150-450); RED BLOOD COUNT 4.45 10^6/uL (3.72-5.28); RED CELL DISTRIBUTION WIDTH 15.1 % (11.5-14.0); WHITE BLOOD COUNT 7.5 10^3/uL (4.0-10.5)
[2018-03-24] MEDS ORDERED: AMPICILLIN SOD/SULBACTAM 3 GM VIAL IV PRN (06:09)
--- NOTE | 2018-03-24 06:09 | PDOC H&P ---
History of Present Illness Admission Date/PCP: 03/23/18 17:09 Patient complains of: pain in right foot History of Present Illness: MARIBEL RANDLE is a 28 year old female states that she injured the fourth digit of her right foot. She also was bitten 2-3 time on the medial aspect of that foot by her kitten. She has developed some erythema and very mild streaking up the foot from this area. Of note the patient reports that she has recently been seen at [facility] and treated for pneumonia. She is inexplicably tearful during this encounter. Past Medical History Cardiac Medical History: Reports: Hypertension Pulmonary Medical History: Reports: Pneumonia Psychiatric Medical History: Reports: Bipolar Disorder, Depression Social History Lives with: Family Smoking Status: Current Every Day Smoker Cigarettes Packs Per Day: 1 Number of Years Smokin Last Time Smoked: today Frequency of Alcohol Use: Occasional Hx Prescription Drug Abuse: No Family History Family History: Reviewed & Not Pertinent Parental Family History Reviewed: Yes Children Family History Reviewed: Yes Sibling(s) Family History Reviewed.: Yes Medication/Allergy Home Medications: Ciprofloxacin HCl [Cipro] 500 mg PO BID 08/07/15 Ibuprofen [Ibuprofen] 800 mg PO PRN PRN 08/07/15 Ondansetron [Zofran Odt 4 mg Tablet] 1 - 2 tab PO Q4H PRN #15 tab.rapdis Cyclobenzaprine HCl [Flexeril 5 mg Tablet] 5 mg PO TID #15 tablet 09/30/15 Hydrocodone Bit/Acetaminophen [Hydrocodon-Acetaminophen 5-325] 1 each PO ASDIR PRN #10 tablet 09/30/15 Vit Calc,Iron,Folic [ Vitamins] 1 each PO DAILY #30 tablet Promethazine HCl [Phenergan 25 mg Tablet] 25 - 50 mg PO ASDIR PRN #20 tablet Penicillin V Potassium [Penicillin Vk 500 mg Tablet] 500 mg PO BID #20 tablet Promethazine HCl [Phenergan 25 mg Tablet] 1 - 2 tab PO Q6H PRN #15 tablet Ranitidine HCl [Zantac 150 mg Tablet] 150 mg PO BID #30 tablet 12/19/16 Cephalexin Monohydrate [Keflex 500 mg Capsule] 500 mg PO QID #20 capsule Ciprofloxacin HCl [Cipro 500 mg Tablet] 500 mg PO BID #10 tablet 08/03/17 Dicyclomine HCl [Bentyl 20 mg Tablet] 20 mg PO QID #40 tablet 08/03/17 Hydrocodone/Acetaminophen [Sterling 5-325 mg Tablet] 1 tab PO Q6 #10 tablet Promethazine HCl [Phenergan 25 mg Tablet] 1 - 2 tab PO Q6H PRN #15 tablet Allergies/Adverse Reactions: erythromycin base [Erythromycin Base] Allergy (Mild, Verified 03/23/18 13:26) VOMITING Review of Systems All systems: reviewed and no additional remarkable complaints except as stated - pain in right foot and cough Physical Exam Vital Signs: Temp Pulse Resp BP Pulse Ox 98.5 F 104 H 20 130/90 H 100 03/23/18 23:20 03/23/18 23:20 03/23/18 23:20 03/23/18 23:20 03/23/18 23:20 General appearance: PRESENT: cooperative, mild distress - Tearful Respiratory exam: PRESENT: other - No increased work of breathing.. ABSENT: rales, rhonchi, wheezes Cardiovascular exam: PRESENT: RRR. ABSENT: gallop, rubs, systolic murmur Pulses: PRESENT: normal carotid pulses, normal radial pulses, normal dorsalis pedis pul GI/Abdominal exam: PRESENT: normal bowel sounds, soft. ABSENT: distended, hernia, mass, tenderness Extremities exam: PRESENT: clubbing. ABSENT: pedal edema, tenderness, +1 edema Musculoskeletal exam: PRESENT: normal inspection, tenderness - Right foot., other - multiple punture wounds to the medial aspect of the patient's right foot with mild erythema and streaking.. ABSENT: deformity, dislocation Neurological exam: PRESENT: alert, awake, oriented to person, oriented to place , oriented to time, oriented to situation, CN II-XII grossly intact. ABSENT: motor sensory deficit Psychiatric exam: PRESENT: depressed, unusual affect Skin exam: PRESENT: dry, intact, warm Results Impressions: Foot X-Ray 03/23/18 14:27 IMPRESSION: NEGATIVE STUDY OF THE RIGHT FOOT. NO RADIOGRAPHIC EVIDENCE OF ACUTE INJURY. Assessment & Plan - Diagnosis (1) Cat bite involving extremity Is this a current diagnosis for this admission?: Yes Plan: IV ampicillin. (2) Cellulitis of right foot Is this a current diagnosis for this admission?: Yes Plan: IV ampicillin (3) Contusion of toe of right foot Qualifiers: Encounter type: initial encounter Toe: lesser toe Damage to nail status: without damage Qualified Code(s): S90.121A - Contusion of right lesser toe(s) without damage to nail, initial encounter Is this a current diagnosis for this admission?: Yes Plan: noted. (4) Elevated C-reactive protein (CRP) Is this a current diagnosis for this admission?: Yes Plan: noted - Time Time Spent: 50 to 70 Minutes Medications reviewed and adjusted accordingly: Yes Anticipated discharge: Home - Inpatient Certification Based on my medical assessment, after consideration of the patient's comorbidities, presenting symptoms, or acuity I expect that the services needed warrant INPATIENT care.: No I certify that my determination is in accordance with my understanding of Medicare's requirements for reasonable and necessary INPATIENT services [42 CFR 412.3e].: No Medical Necessity: Need for IV Antibiotics
[2018-03-24] MEDS ORDERED: AMPICILLIN SOD INJ 1 GM VIAL IV PRN (06:10)
[2018-03-24] MEDS ORDERED: NORMAL SALINE IV ONE (06:15)
[2018-03-24] MEDS ORDERED: AMPICILLIN SODIUM IV ONE (06:15)
[2018-03-24 06:28] LABS: ANION GAP 11 (5-19); BLOOD UREA NITROGEN 12 mg/dL (7-20); CALCIUM 8.9 mg/dL (8.4-10.2); CARBON DIOXIDE 26 mmol/L (22-30); CHLORIDE 104 mmol/L (98-107); GLUCOSE 70 mg/dL (75-110); POTASSIUM 4.6 mmol/L (3.6-5.0); SODIUM 140.8 mmol/L (137-145)
[2018-03-24] MEDS ORDERED: CEPHALEXIN 500 MG CAPSULE PO ONE (06:30)
[2018-03-24] MEDS: MORPHINE SULFATE 10 MG/ML INJ IV PRN (07:41)
[2018-03-24] MEDS: PRENATAL VITAMIN W DHA CAPSULE PO SCH (11:14)
[2018-03-24] MEDS: ENOXAPARIN SODIUM INJ 40 MG/0.4 ML DISP.SYRIN SUBCUT SCH (11:14)
[2018-03-24] MEDS: FAMOTIDINE 20 MG TABLET PO SCH ×2 (11:15→18:45)
[2018-03-24] MEDS: DICYCLOMINE HCL 20 MG TABLET PO SCH ×3 (11:15→18:43)
[2018-03-24] MEDS: NICOTINE 21 MG/24 HR PATCH.TD24 TD SCH (11:16)
[2018-03-24] MEDS: CYCLOBENZAPRINE HCL 10 MG TABLET PO SCH ×2 (11:27→21:39)
[2018-03-24] MEDS ORDERED: AMPICILLIN SODIUM IV SCH ×4 (12:00)
[2018-03-24] MEDS ORDERED: NORMAL SALINE IV SCH ×4 (12:00)
[2018-03-24] MEDS ORDERED: CLONAZEPAM 1 MG TABLET PO PRN (13:09)
--- NOTE | 2018-03-24 13:39 | PDOC PROGRESS REPORT ---
Subjective Progress Note for:: 03/24/18 Subjective:: The patient is complaining of pain that is out of scale with the rather minor nature of her infection and physical findings. Reason For Visit: CELLULITIS WITH LYMPHANGITIS DUE TO CAT BITE Physical Exam Vital Signs: Temp Pulse Resp BP Pulse Ox 98.3 F 110 H 12 109/71 97 03/24/18 11:34 03/24/18 11:34 03/24/18 11:34 03/24/18 11:34 03/24/18 11:34 Intake & Output 03/23/18 03/24/18 03/25/18 06:59 06:59 06:59 Intake Total 237 Balance 237 Weight 81 kg General appearance: PRESENT: mild distress Respiratory exam: PRESENT: unlabored. ABSENT: rales, rhonchi, wheezes Cardiovascular exam: PRESENT: RRR. ABSENT: gallop, rubs, systolic murmur Pulses: PRESENT: normal dorsalis pedis pul GI/Abdominal exam: PRESENT: normal bowel sounds, soft. ABSENT: hernia, mass, organolmegaly, tenderness Rectal exam: PRESENT: deferred Extremities exam: PRESENT: other - Right foot with erythema of the fourth digit secondary to bruise. Multiple punctate wounds to the medial aspect of the foot one with very slight swelling and very mild erythema. The patient complains of severe pain in the foot. Neurological exam: PRESENT: alert, awake, oriented to person, oriented to place , oriented to time, oriented to situation, CN II-XII grossly intact. ABSENT: motor sensory deficit Skin exam: PRESENT: erythema - Very mild erythema on the medical aspect of the right foot. Results Laboratory Results: 03/24/18 05:08 03/24/18 05:08 03/24/18 03/24/18 05:08 05:08 WBC 7.5 RBC 4.45 Hgb 12.6 Hct 37.0 MCV 83 MCH 28.4 MCHC 34.2 RDW 15.1 H Plt Count 391 Sodium 140.8 Potassium 4.6 Chloride 104 Carbon Dioxide 26 Anion Gap 11 BUN 12 Creatinine 0.86 Est GFR ( Amer) > 60 Est GFR (Non-Af Amer) > 60 Glucose 70 L Calcium 8.9 Impressions: Foot X-Ray 03/23/18 14:27 IMPRESSION: NEGATIVE STUDY OF THE RIGHT FOOT. NO RADIOGRAPHIC EVIDENCE OF ACUTE INJURY. Assessment & Plan - Diagnosis (1) Cat bite involving extremity Is this a current diagnosis for this admission?: Yes Plan: IV ampicillin. (2) Cellulitis of right foot Is this a current diagnosis for this admission?: Yes Plan: IV ampicillin (3) Contusion of toe of right foot Qualifiers: Encounter type: initial encounter Toe: lesser toe Damage to nail status: without damage Qualified Code(s): S90.121A - Contusion of right lesser toe(s) without damage to nail, initial encounter Is this a current diagnosis for this admission?: Yes Plan: noted. (4) Elevated C-reactive protein (CRP) Is this a current diagnosis for this admission?: Yes (5) Pneumonia Is this a current diagnosis for this admission?: Yes Plan: Recent diagnosis of pneumonia. Continue keflex a prescrived as outpatient. Lung sounds are clear. - Time Time Spent with patient: 15-24 minutes Medications reviewed and adjusted accordingly: Yes
[2018-03-24] MEDS ORDERED: CYCLOBENZAPRINE HCL 10 MG TABLET PO SCH (14:00)
[2018-03-24] MEDS: CEPHALEXIN 500 MG CAPSULE PO SCH ×2 (14:02→21:39)
[2018-03-24] MEDS: IBUPROFEN 400 MG TABLET PO PRN (14:04)
[2018-03-24] MEDS: AMPICILLIN SODIUM IV SCH ×2 (15:31→21:39)
[2018-03-24] MEDS: NORMAL SALINE IV SCH ×2 (15:31→21:39)
[2018-03-24] MEDS ORDERED: DICYCLOMINE HCL 20 MG TABLET ONE ×2 (18:31→18:32)
[2018-03-24] MEDS ORDERED: CYCLOBENZAPRINE HCL 10 MG TABLET ONE (18:34)
[2018-03-24] MEDS ORDERED: (PENDING PHARMACY ID) (Oxcarbazepine [Trileptal] 300 MG) PO SCH (22:00)
[2018-03-24] MEDS ORDERED: OXCARBAZEPINE 150 MG TABLET PO SCH (22:00)
[2018-03-25] MEDS: DICYCLOMINE HCL 20 MG TABLET PO SCH ×3 (00:10→12:43)
[2018-03-25] MEDS ORDERED: IBUPROFEN 400 MG TABLET ONE (00:27)
[2018-03-25] MEDS: IBUPROFEN 400 MG TABLET PO PRN (00:31)
[2018-03-25] MEDS: AMPICILLIN SODIUM IV SCH ×2 (03:26→08:09)
[2018-03-25] MEDS: NORMAL SALINE IV SCH ×2 (03:26→08:09)
[2018-03-25] MEDS: OXYCODONE-ACETAMINOPHEN 5-325 MG TABLET PO PRN (03:59)
[2018-03-25] MEDS: CEPHALEXIN 500 MG CAPSULE PO SCH (06:21)
[2018-03-25] MEDS: CYCLOBENZAPRINE HCL 10 MG TABLET PO SCH (06:21)
--- NOTE | 2018-03-25 09:00 | Physician Advisory Note ---
Physician Advisor ProgressNote .: [facility], I have reviewed the medical record for this patient. Physician Advisor Statement: Self-pay pt w/cat bites/scratches on bruised toe, w/lymphangitic streaking documented in ED, elevated CRP, tachycardia, initially elevated BP, distress. Pt w/underlying HTN, tobacco abuse, bipolar dep, recent PNA (still on Keflex). - Has had persistent tachycardia 98-119 since arrival, & hypoglycemia of 70 on 03/24 AM, w/continued distress & c/o pain out of proportion to physical findings , despite IV ampicillin since arrival. Status: if pt cannot be safely d/c'd today (needing change/broadening of abx because lymphangitic streaking more prominent/proximal or insufficient response , or developed possible abscess or osteomyelitis, &/or needing ortho eval w/Dr. Keller, or ...), please document attending concerns & reasoning, & may consider change to Inpatient status. Thanks, CK
[2018-03-25] MEDS: NICOTINE 21 MG/24 HR PATCH.TD24 TD SCH (09:22)
[2018-03-25] MEDS: ENOXAPARIN SODIUM INJ 40 MG/0.4 ML DISP.SYRIN SUBCUT SCH (09:23)
[2018-03-25] MEDS: PRENATAL VITAMIN W DHA CAPSULE PO SCH (09:25)
[2018-03-25] MEDS: FAMOTIDINE 20 MG TABLET PO SCH (09:25)
[2018-03-25] MEDS ORDERED: LISINOPRIL 10 MG TABLET PO SCH (10:00)
[2018-03-25 10:38] VITALS: BP 113/81
--- NOTE | 2018-03-25 14:20 | PDOC DISCHARGE SUMMARY ---
General - Admit/Disc Date/PCP Admission Date/Primary Care Provider: 03/23/18 17:09 Discharge Date: 03/25/18 - Discharge Diagnosis (1) Cat bite involving extremity Is this a current diagnosis for this admission?: Yes (2) Cellulitis of right foot Is this a current diagnosis for this admission?: Yes (3) Contusion of toe of right foot Is this a current diagnosis for this admission?: Yes (4) Elevated C-reactive protein (CRP) Is this a current diagnosis for this admission?: Yes (5) Pneumonia Is this a current diagnosis for this admission?: Yes - Additional Information Resuscitation Status: Full Code Discharge Diet: As Tolerated Prescriptions: Ampicillin Trihydrate 500 mg PO Q6H #32 capsule Oxycodone HCl/Acetaminophen [Percocet 5-325 mg Tablet] 1 tab PO Q6HP PRN #10 tablet PRN Reason: Home Medications: Clonazepam [Klonopin 1 mg Tablet] 1.5 mg PO DAILYP PRN 03/24/18 Fluoxetine HCl [Prozac] 40 mg PO DAILY 03/24/18 Gabapentin [Neurontin 300 mg Capsule] 300 mg PO Q6 03/24/18 Lisinopril [Prinivil 10 mg Tablet] 5 mg PO DAILY 03/24/18 Oxcarbazepine [Trileptal] 300 mg PO QHS 03/24/18 Ampicillin Trihydrate 500 mg PO Q6H #32 capsule 03/25/18 Cephalexin Monohydrate [Keflex 500 mg Capsule] 500 mg PO Q8 capsule 03/25/18 Famotidine [Pepcid 20 mg Tablet] 20 mg PO BID tablet 03/25/18 Oxycodone HCl/Acetaminophen [Percocet 5-325 mg Tablet] 1 tab PO Q6HP PRN #10 tablet 03/25/18 Vit/Dha [ Multi + Dha Capsule] 1 cap PO DAILY capsule History of Present Illness History of Present Illness: MARIBEL RANDLE is a 28 year old female states that she injured the fourth digit of her right foot. She also was bitten 2-3 time on the medial aspect of that foot by her kitten. She has developed some erythema and very mild streaking up the foot from this area. Of note the patient reports that she has recently been seen at [facility] and treated for pneumonia. She is inexplicably tearful during this encounter. Hospital Course Hospital Course: The patient was admitted to a medical bed. She was started on antibiotics for infection in her foot. On admission there was a light pink to the area surrounding one of the puncture pena with very faint 2 cm "streak" from the site of injury. The patient complained of severe pain in her foot. She was given IV ampicillin and pain control. She had no fevers and her white count was not elevated. This morning there was no erythema. Although the patient continued to complain of pain, I felt that the patient could be discharged to home on PO antibiotics. Throughout her stay she was continued on the antibiotic she had been prescribed after discharge from another hospital a few days prior to presentation here where she had been diagnosed with pneumonia. She had no cough, shortness of breath, or lung sounds to indicate that pneumonia was a continuing problem requiring further work up. Physical Exam Vital Signs: Temp Pulse Resp BP Pulse Ox 98.2 F 107 H 15 113/81 94 03/25/18 10:36 03/25/18 10:36 03/25/18 10:36 03/25/18 10:36 03/25/18 10:36 Intake & Output 03/24/18 03/25/18 03/26/18 06:59 06:59 06:59 Intake Total 537 Balance 537 Weight 81 kg General appearance: PRESENT: other - Tearful. Respiratory exam: PRESENT: clear to auscultation camelia, other - No increased work of breathing.. ABSENT: accessory muscle use, chest wall tenderness, rales, rhonchi, wheezes Cardiovascular exam: PRESENT: RRR, other - No lateral PMI. No thrills.. ABSENT : gallop, rubs, systolic murmur Pulses: PRESENT: normal dorsalis pedis pul GI/Abdominal exam: PRESENT: normal bowel sounds, soft. ABSENT: hernia, mass, organolmegaly, tenderness Extremities exam: PRESENT: other - Puncture pena on the medial aspect of the right foot. No fluctuance, no erythema.. ABSENT: clubbing, pedal edema, tenderness Neurological exam: PRESENT: alert, awake, oriented to person, oriented to place , oriented to time, oriented to situation, CN II-XII grossly intact. ABSENT: motor sensory deficit Psychiatric exam: PRESENT: unusual affect, other - hystrionic Skin exam: PRESENT: dry, intact, warm Results Laboratory Results: 03/24/18 05:08 03/24/18 05:08 Impressions: Foot X-Ray 03/23/18 14:27 IMPRESSION: NEGATIVE STUDY OF THE RIGHT FOOT. NO RADIOGRAPHIC EVIDENCE OF ACUTE INJURY. Qualifiers - * PATIENT BEING DISCHARGED WITH ANY OF THE FOLLOWING DIAGNOSIS: No
[2018-03-25] MEDS ORDERED: FLUOXETINE HCL 20 MG CAPSULE PO SCH (14:30)
== END 2018-03-25 13:48 | disposition home or self-care (01) ==
LOC: ER 13:23 → EH 17:09 → 3N 23:05 → 2N 03-24 14:24
PROVIDERS: ADMIT Internal Medicine; ATTEND Internal Medicine
PROC: 3E0234Z Introduction of Serum, Toxoid and Vaccine into Muscle, Percutaneous Approach (ICD-10-PCS; principal; 2018-03-23)
DX: S91.351A Open bite, right foot, initial encounter (principal); L03.115 Cellulitis of right lower limb; W55.01XA Bitten by cat, initial encounter; S90.121A Contusion of right lesser toe(s) without damage to nail, initial encounter; W18.00XA Striking against unspecified object with subsequent fall, initial encounter; R79.82 Elevated C-reactive protein (CRP); J18.9 Pneumonia, unspecified organism; I10 Essential (primary) hypertension; F17.210 Nicotine dependence, cigarettes, uncomplicated; F31.9 Bipolar disorder, unspecified; Z79.899 Other long term (current) drug therapy; Z23 Encounter for immunization
CPT/HCPCS: 99406; 99284; 90471; 96365; 36415 ×2; 87040; 85025; 85027; 81025; 86140; 80048 ×2; 81001; 73630; 90715; G0378 ×7; J0290 ×2; J3490 ×10; J0295; J2270 ×2; J1170

== ENCOUNTER 2018-05-26 18:33 | Emergency (ER) | payer MEDICAID ==
[2018-05-26] MEDS ORDERED: DIAZEPAM INJ 10 MG/2 ML DISP.SYRIN IV ONE (18:55)
[2018-05-26] MEDS ORDERED: NORMAL SALINE 1000 ML 1,000 ML IV ONE (18:55)
--- NOTE | 2018-05-26 19:00 | ER Document Report ---
ED General - General Chief Complaint: Probable Seizure Stated Complaint: CHEST DISCOMFORT Time Seen by Provider: 05/26/18 18:50 Notes: Patient is a 28-year-old female with a past medical history of a mood disorder, anxiety, who presents by EMS with concerns of a possible seizure. The patient was apparently having an argument with her significant other, began to develop chest pain and palpitations. She states that she became very anxious, felt like she cannot move or stand up. Apparently she was able to walk into her home and then was allegedly found by her significant other to be lying on the ground foaming at the mouth. EMS was contacted. Patient was transferred to the hospital. At the time of my assessment the patient is not having a postictal phase. She is tearful, anxious, stating that she feels extremely anxious at this point. States that she believes she has had similar episodes in the past. TRAVEL OUTSIDE OF THE [place] IN LAST 30 DAYS: No - Related Data Allergies/Adverse Reactions: erythromycin base [Erythromycin Base] Allergy (Mild, Verified 03/23/18 13:26) VOMITING Past Medical History - General Information source: Patient - Social History Smoking Status: Current Every Day Smoker Chew tobacco use (# tins/day): No Frequency of alcohol use: None Drug Abuse: None Lives with: Spouse/Significant other Family History: Reviewed & Not Pertinent Patient has suicidal ideation: No Patient has homicidal ideation: No - Past Medical History Cardiac Medical History: Reports: Hx Hypertension Pulmonary Medical History: Reports: Hx Pneumonia Renal/ Medical History: Denies: Hx Peritoneal Dialysis Psychiatric Medical History: Reports: Hx Bipolar Disorder, Hx Depression Past Surgical History: Reports: Hx Myringotomy - Immunizations Hx Diphtheria, Pertussis, Tetanus Vaccination: Yes Review of Systems - Review of Systems Notes: Constitutional: Negative for fever. HENT: Negative for sore throat. Eyes: Negative for visual changes. Cardiovascular: Positive for chest discomfort which has now resolved Respiratory: Negative for shortness of breath. Gastrointestinal: Negative for abdominal pain, vomiting or diarrhea. Genitourinary: Negative for dysuria. Musculoskeletal: Negative for back pain. Skin: Negative for rash. Neurological: Negative for headaches, weakness or numbness. 10 point ROS negative except as marked above and in HPI. Physical Exam - Vital signs Interpretation: Normal Notes: PHYSICAL EXAMINATION: GENERAL: Appears in emotional distress HEAD: Atraumatic, normocephalic. EYES: Pupils equal round and reactive to light, extraocular movements intact, sclera anicteric, conjunctiva are normal. ENT: nares patent, oropharynx clear without exudates. Moist mucous membranes. NECK: Normal range of motion, supple without lymphadenopathy LUNGS: Breath sounds clear to auscultation bilaterally and equal. No wheezes rales or rhonchi. HEART: Regular rate and rhythm without murmurs ABDOMEN: Soft, nontender, normoactive bowel sounds. No guarding, no rebound. No masses appreciated. EXTREMITIES: Normal range of motion, no pitting or edema. No cyanosis. NEUROLOGICAL: Face symmetric. Tongue protrudes midline. Extraocular motions intact. Pupils are 2 mm and equally reactive. Normal speech, normal gait. 5 out of 5 strength in both the distal and proximal upper and lower extremities bilaterally. Sensation is grossly intact throughout. Finger to nose testing normal. Pronator drift normal. PSYCH: Anxious, tearful, stuttering speech SKIN: Warm, Dry, normal turgor, no rashes or lesions noted. 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 Patient has an event, which she recalls after having an argument with her significant other. She is having ongoing panic attack at time of presentation. Clinical history is inconsistent with an epileptic seizure and I do not believe any imaging or labs as indicated. Neurologic exam unremarkable without any focal neurologic deficits. No trauma sustained during today's episode. The patient does have a history of similar episodes in the past as well as a psychiatric history.will treat with diazepam and reassess. At this time will discharge with return precautions and follow-up recommendations. Verbal discharge instructions given a the bedside and opportunity for questions given. Medication warnings reviewed. Patient is in agreement with this plan and has verbalized understanding of return precautions and the need for primary care follow-up in the next 24-72 hours. - EKG Interpretation by Me Additional EKG results interpreted by me: 05/26/18 18:57 Sinus rhythm. Rate 82. No ST elevations or depressions. QTC is 416. Discharge - Discharge Clinical Impression: Anxiety reaction, Pseudoseizure Condition: Good Disposition: HOME, SELF-CARE Additional Instructions: Your episode of shaking today was likely due to something called PNES, also known as pseudogenic non-epileptiform seizures. These are often also often referred to as pseudoseizures. These are not voluntary. However, they are not coming from an abnormal focus in your brain like somebody who has true epilepsy. These episodes can often be triggered by stress, anxiety, or not taking your normal medications. Please follow-up with your primary care doctor at your earliest ability. Return for any additional concerns you may have including if you develop a fever, nausea, vomiting, pass out, have focal weakness or numbness, or any other symptoms that are concerning to you.
[2018-05-26 20:10] VITALS: BP 126/97
--- NOTE | 2018-05-26 21:58 | EKG REPORT ---
SEVERITY:- NORMAL ECG - SINUS RHYTHM : Confirmed by: Sonia Duenas 26-May-2018 21:57:46
== END 2018-05-26 20:11 | disposition home or self-care (01) ==
LOC: ER 18:33
DX: F41.1 Generalized anxiety disorder (principal); F44.5 Conversion disorder with seizures or convulsions; F41.0 Panic disorder [episodic paroxysmal anxiety]; R07.9 Chest pain, unspecified; R00.2 Palpitations; I10 Essential (primary) hypertension; F17.200 Nicotine dependence, unspecified, uncomplicated; Z88.1 Allergy status to other antibiotic agents
CPT/HCPCS: 93005; 99284; 96361; 96374; 93010; J3360; J7030

== ENCOUNTER 2018-07-03 17:43 | Emergency (ER) | payer MEDICAID, OTHER ==
[2018-07-03 18:00] VITALS: BP 123/92
[2018-07-03] MEDS ORDERED: KETOROLAC TROMETHAMINE 60 MG/2 ML SDV IM ONE (18:40)
[2018-07-03 18:42] LABS: APPEARANCE,URINE CLEAR; BILIRUBIN,URINE NEGATIVE (NEGATIVE); COLOR,URINE YELLOW; GLUCOSE, URINE NEGATIVE (NEGATIVE); KETONES,URINE NEGATIVE (NEGATIVE); LEUKOCYTE ESTERASE,URINE NEGATIVE (NEGATIVE); NITRITE,URINE NEGATIVE (NEGATIVE); PROTEIN,URINE NEGATIVE (NEGATIVE); URINE SPECIFIC GRAVITY 1.016; UROBILINOGEN,URINE NEGATIVE mg/dL (<2.0)
--- NOTE | 2018-07-03 18:42 | ER Document Report ---
ED GI/ - General Chief Complaint: Urinary Problem Stated Complaint: CONGESTION,BLOOD IN URINE Time Seen by Provider: 07/03/18 18:36 Mode of Arrival: Ambulatory Information source: Patient Notes: History of Present Illness Time: [ ] Chief Complaint: [flank pain] [ 28 years old female presents today with bilateral flank pain, dysuria frequency and urgency. No hematuria. No vaginal discharges. Had a menstrual cycle last week. Also having general body aches and pain sore throat and nasal congestion.] History obtained from [patient] Symptoms began: [today] Onset: [gradual] Timing: [intermittent] Quality: [``pain] Intensity: [severe] Location: [flank] Migration: [none] Radiation: [none] Mechanism: [none] Aggravating factors: [none] Relieving factors: [none] Denies significant traumatic injury Denies weakness, numbness, incontinence Denies IV drug use Denies trouble with urination Review of Systems All other systems negative as reviewed. CONSTITUTIONAL No fever. EYES No eye pain. ENT No URI symptoms, No sore throat, No ear pain. CARDIOVASCULAR No chest pain, No palpitations, No edema. RESPIRATORY No Cough, No SOB, No wheezing. GASTROINTESTINAL No abdominal pain, No diarrhea, No vomiting, No constipation, No melena, No rectal bleeding. GENITOURINARY No UTI symptoms, No bleeding. MUSCULOSKELETAL + flank pain. SKIN No Rash. NEUROLOGIC No Headache, No recent seizures, No paralysis, No parathesias. Physical Exam CONSTITUTIONAL Vital signs reviewed, comfortable, Alert and oriented X 3. HEAD Atraumatic, Normal cephalic. EYES No discharge from eyes, Sclera are not injected, Extraocular muscles intact, Conjunctiva are normal. ENT Ears normal to inspection, Nose examination normal, Oropharynx erythematous, Mucous membranes pink, moist, normal in color. NECK Normal ROM, No jugular venous distention, No meningeal signs, No carotid bruit. RESPIRATORY/CHEST Chest is non-tender, Breath sounds normal, No respiratory distress. CARDIOVASCULAR RRR, Heart sounds normal. ABDOMEN Abdomen bilateral flank tenderness left more than the right, No masses, Bowel sounds normal, No distension, No peritoneal signs. BACK Normal inspection. no focal bony tenderness, no CVA tenderness, no soft tissue tenderness, negative straight leg test bilaterally, bilateral 2+ knee deep tendon reflexes. UPPER EXTREMITY Inspection normal, No cyanosis/clubbing/edema, 2+ radial pulses. LOWER EXTREMITY Inspection normal, No cyanosis/clubbing/edema, 2+ femoral pulses. NEURO Motor exam normal, Sensory exam normal. SKIN Skin is warm and dry, No rash. PSYCHIATRIC Normal affect. TRAVEL OUTSIDE OF THE [place] IN LAST 30 DAYS: No - Related Data Allergies/Adverse Reactions: erythromycin base [Erythromycin Base] Allergy (Mild, Verified 07/03/18 17:43) VOMITING Past Medical History - General Information source: Patient - Social History Smoking Status: Never Smoker Cigarette use (# per day): No Chew tobacco use (# tins/day): No Smoking Education Provided: No Frequency of alcohol use: Rare Drug Abuse: None Lives with: Family Family History: Reviewed & Not Pertinent - Past Medical History Cardiac Medical History: Reports: Hx Hypertension Pulmonary Medical History: Reports: Hx Pneumonia Renal/ Medical History: Denies: Hx Peritoneal Dialysis Psychiatric Medical History: Reports: Hx Bipolar Disorder, Hx Depression Past Surgical History: Reports: Hx Myringotomy - Immunizations Hx Diphtheria, Pertussis, Tetanus Vaccination: Yes Review of Systems - Review of Systems Notes: Dictated Physical Exam - Vital signs Vitals: Temp Pulse Resp BP Pulse Ox 98.5 F 110 H 20 123/92 H 100 07/03/18 17:56 07/03/18 17:56 07/03/18 17:56 07/03/18 17:56 07/03/18 17:56 - Notes Notes: Dictated Course - Vital Signs Vital signs: Temp Pulse Resp BP Pulse Ox 98.5 F 110 H 20 123/92 H 100 07/03/18 17:56 07/03/18 17:56 07/03/18 17:56 07/03/18 17:56 07/03/18 17:56 - Laboratory Laboratory results interpreted by me: 07/03/18 17:45 Urine Blood SMALL H Discharge - Discharge Clinical Impression: UTI (urinary tract infection) Qualifiers: Urinary tract infection type: site unspecified Hematuria presence: without hematuria Qualified Code(s): N39.0 - Urinary tract infection, site not specified URI (upper respiratory infection) Qualifiers: URI type: unspecified URI Qualified Code(s): J06.9 - Acute upper respiratory infection, unspecified Condition: Fair Disposition: HOME, SELF-CARE Instructions: Upper Respiratory Illness ([facility]), Urinary Tract Infection ([facility]) Prescriptions: Ciprofloxacin HCl [Cipro 500 mg Tablet] 500 mg PO BID #20 tablet Referrals: EMILIANO HARTLEY MD [Primary Care Provider] - Follow up as needed
[2018-07-03 20:49] LABS: A TYPE INFLUENZA AG NEGATIVE (NEGATIVE); B INFLUENZA AG NEGATIVE (NEGATIVE)
== END 2018-07-03 21:06 | disposition home or self-care (01) ==
LOC: ER 17:43
DX: N39.0 Urinary tract infection, site not specified (principal); J06.9 Acute upper respiratory infection, unspecified; I10 Essential (primary) hypertension; Z88.1 Allergy status to other antibiotic agents
CPT/HCPCS: 99283; 96372; 87070; 87880; 81025; 81001; 87804; J1885

== ENCOUNTER 2018-07-05 12:35 | Emergency (ER) | payer MEDICAID ==
[2018-07-05] MEDS ORDERED: ONDANSETRON 4 MG TAB.RAPDIS ONE (12:37)
[2018-07-05] MEDS ORDERED: ONDANSETRON 4 MG TAB.RAPDIS PO ONE (12:44)
[2018-07-05] MEDS ORDERED: KETOROLAC TROMETHAMINE 60 MG/2 ML SDV IM ONE (12:45)
[2018-07-05] MEDS: LORAZEPAM INJ 2 MG/1 ML VIAL IM ONE ×2 (12:57→13:04)
--- NOTE | 2018-07-05 13:24 | RADIOLOGY REPORT (SQ) ---
EXAM DESCRIPTION: KUB/ABDOMEN (SINGLE VIEW) COMPLETED DATE/TIME: 07/05/2018 1:16 pm REASON FOR STUDY: Abdominal pain COMPARISON: None. NUMBER OF VIEWS: One view. TECHNIQUE: Supine radiographic image of the abdomen acquired. LIMITATIONS: None. FINDINGS: BOWEL GAS PATTERN: Normal bowel gas pattern. No dilated loops. CALCIFICATIONS: No suspicious calcifications. SOFT TISSUES: No gross mass or suggestion of organomegaly. HARDWARE: None in the abdomen. BONES: No acute fracture. No worrisome bone lesions. OTHER: No other significant finding. IMPRESSION: NO RADIOGRAPHIC EVIDENCE FOR ACUTE ABDOMINAL DISEASE. TECHNICAL DOCUMENTATION: JOB ID: [id number] [employer]- All Rights Reserved Reading location - IP/workstation name: [email or web address]
[2018-07-05 13:26] LABS: ABSOLUTE BASOPHILS # (AUTO) 0.1 10^3/uL (0.0-0.2); ABSOLUTE EOSINOPHILS # (AUTO) 0.2 10^3/uL (0.0-0.6); ABSOLUTE LYMPHOCYTES (AUTO) 3.1 10^3/uL (0.5-4.7); ABSOLUTE MONOCYTES (AUTO) 0.4 10^3/uL (0.1-1.4); ABSOLUTE NEUT (AUTO) 5.3 10^3/uL (1.7-8.2); EOSINOPHILS % (AUTO) 2.6 % (0-6); HEMATOCRIT 39.5 % (36.0-47.0); HEMOGLOBIN 13.4 g/dL (12.0-15.5); MEAN CORPUSCULAR HEMOGLOBIN 27.9 pg (27.0-33.4); MEAN CORPUSCULAR HGB CONC 33.9 g/dL (32.0-36.0); MEAN CORPUSCULAR VOLUME 82 fl (80-97); MONOCYTES % (AUTO) 3.9 % (3-13); PLATELET COUNT 431 10^3/uL (150-450); RED BLOOD COUNT 4.81 10^6/uL (3.72-5.28); RED CELL DISTRIBUTION WIDTH 14.1 % (11.5-14.0); SEGMENTED NEUTROPHILS % (AUTO) 58.5 % (42-78); TOTAL CELLS COUNTED % (AUTO) 100 %; WHITE BLOOD COUNT 9.1 10^3/uL (4.0-10.5)
[2018-07-05 13:54] LABS: ALANINE AMINOTRANSFERASE 12 U/L (9-52); ALBUMIN 4.2 g/dL (3.5-5.0); ALKALINE PHOSPHATASE 73 U/L (38-126); ANION GAP 12 (5-19); ASPARTATE AMINO TRANSFERASE 16 U/L (14-36); BILIRUBIN,DIRECT 0.2 mg/dL (0.0-0.4); BILIRUBIN,TOTAL 0.3 mg/dL (0.2-1.3); BLOOD UREA NITROGEN 12 mg/dL (7-20); CALCIUM 9.3 mg/dL (8.4-10.2); CARBON DIOXIDE 24 mmol/L (22-30); CHLORIDE 108 mmol/L (98-107); GLUCOSE 118 mg/dL (75-110); POTASSIUM 4.5 mmol/L (3.6-5.0); SODIUM 143.5 mmol/L (137-145); TOTAL PROTEIN 7.2 g/dL (6.3-8.2)
--- NOTE | 2018-07-05 14:36 | ER Document Report ---
ED General - General Chief Complaint: Nausea/Vomiting Stated Complaint: NAUSEA/VOMITING Time Seen by Provider: 07/05/18 12:43 Notes: Patient is complaining of pain in her left flank region for the past 3 days. She is also having some vomiting and diarrhea. She was having respiratory symptoms as well and came here to be seen 2 days ago. At that time, her urine showed dipstick positive blood and she was treated for a UTI with Cipro. She was given Toradol for her pain. She says the Toradol has not helped her pain and she still having the same pain in the same location in the left flank. The head cold symptoms and URI symptoms have resolved. Patient says she vomited once today and she is having some diarrhea last night and this morning. Does not have any abdominal pain. Denies any fever. LMP 11/16, on no control. test done 2 days ago when she was here earlier is negative. Patient has never had any abdominal surgeries. PMH: Hypertension, depression, panic attacks. TRAVEL OUTSIDE OF THE [place] IN LAST 30 DAYS: No - Related Data Allergies/Adverse Reactions: erythromycin base [Erythromycin Base] Allergy (Mild, Verified 07/05/18 12:35) VOMITING Past Medical History - Social History Smoking Status: Unknown if Ever Smoked Family History: Reviewed & Not Pertinent Patient has suicidal ideation: No Patient has homicidal ideation: No - Past Medical History Cardiac Medical History: Reports: Hx Hypertension Pulmonary Medical History: Reports: Hx Pneumonia Psychiatric Medical History: Reports: Hx Bipolar Disorder, Hx Depression, Other - Panic attacks Past Surgical History: Reports: Hx Myringotomy - Immunizations Hx Diphtheria, Pertussis, Tetanus Vaccination: Yes Review of Systems - Review of Systems Notes: REVIEW OF SYSTEMS: CONSTITUTIONAL : Denies fever. Appears uncomfortable, holding her left flank with her left hand. EENT: Denies eye, ear, nose or mouth or throat pain or other symptoms. CARDIOVASCULAR: Denies chest pain. RESPIRATORY: Denies cough, chest congestion, or shortness of breath. GASTROINTESTINAL: Denies abdominal pain or nausea, vomiting, or diarrhea. GENITOURINARY: Denies difficulty or painful urinating, urinary frequency, blood in urine. MUSCULOSKELETAL: Denies neck pain. Denies joint pain or swelling. SKIN: Denies rash or skin lesions. NEUROLOGICAL: Denies LOC or altered mental status. Denies headache. Denies sensory loss or motor deficits. ALL OTHER SYSTEMS REVIEWED AND NEGATIVE. Physical Exam - Vital signs Vitals: Temp Pulse BP Pulse Ox 97.9 F 119 H 132/99 H 100 07/05/18 12:42 07/05/18 12:42 07/05/18 12:42 07/05/18 12:42 Interpretation: Normal, Tachycardic - Minimal Notes: PHYSICAL EXAMINATION: GENERAL: Well-appearing, in no acute distress. Holding left flank with left hand. HEAD: Atraumatic, normocephalic. EYES: Pupils equal round and reactive to light, extraocular movements intact. ENT: oropharynx clear without exudates. Moist mucous membranes. NECK: Normal range of motion, supple. LUNGS: Breath sounds clear and equal bilaterally. HEART: Regular rate and rhythm without murmurs. ABDOMEN: Soft, nontender. No guarding or rebound. No masses. BACK: No tenderness throughout entire back. Some mild tenderness to poke deeply in the left flank region corresponding to the location of the kidney. EXTREMITIES: Normal range of motion without pain. NEUROLOGICAL: Normal speech, normal gait. Normal sensory, motor, and reflex exams. Awake, alert, and oriented x3. Cranial nerves normal. PSYCH: Normal mood, normal affect. SKIN: Warm, dry, no rashes. Course - Vital Signs Vital signs: Temp Pulse Resp BP Pulse Ox 97.9 F 92 16 136/66 H 96 07/05/18 12:42 07/05/18 15:24 07/05/18 15:24 07/05/18 15:24 07/05/18 15:24 - Laboratory Result Diagrams: 07/05/18 13:07 07/05/18 13:07 Laboratory results interpreted by me: 07/05/18 07/05/18 07/05/18 13:07 13:07 14:49 RDW 14.1 H Chloride 108 H Glucose 118 H Urine Blood LARGE H Discharge - Discharge Clinical Impression: Left flank pain, Hematuria Condition: Stable Disposition: HOME, SELF-CARE Additional Instructions: Flank Pain We weren't able to prove an exact cause for your flank pain. Pain in the flank can be caused by a muscle strain or spasm. Sometimes a kidney stone causes pain, but can't be found on our tests. Infection in the kidney should be evident on a urine test. Early shingles can occasionally cause flank pain, without the rash that proves the diagnosis. On rare occasions, disease of the pancreas, aorta, spleen, or colon can create pain in the flank. At this time, there's no evidence of a dangerous condition, and it seems safe for you to be at home. If the pain goes away and does not come back, no further testing will be needed. If pain persists, or becomes more severe, we may need to repeat some tests or order additional new testing. Blood in the urine, urgency to urinate frequently, and pain that radiates to the groin can indicate a kidney stone. Fever may mean that the pain is due to infection, either of the kidney or the colon (diverticulitis). If your pain is early shingles, you should develop an eruption of blisters in the painful area within a few days. Call the doctor or return if you have pain that is spreading or becoming more severe, pain that does not resolve with time, fever, or any other new symptoms. Hematuria Hematuria, or blood in your urine, can be caused by minor medical problems , such as a bladder infection, or by more serious medical conditions, such as kidney stones or even tumors of the bladder or kidney. If the cause of the hematuria is known (such as a bladder infection) and can be treated, it may not need further evaluation. If the cause is not known, it will usually require further evaluation by a specialist, such as a urologist. In particular, unexplained hematuria in the older patient must be evaluated to rule out a serious condition, such as a bladder or kidney tumor. If the hematuria worsens or you are passing clots and then are unable to urinate, you should be re-evaluated. A catheter may need to be placed in the bladder to permit passage of urine. If you develop high fever, severe pain, or other new or worsening symptoms, return to the Emergency Department for re- evaluation. Ultram Ultram is an excellent drug for pain relief. It is not a narcotic, but it works in a similar way. Ultram can take up to two hours for full effect. Although not addicting, Ultram is best avoided in patients with a history of drug abuse. Ultram should not be used with alcohol, sleeping pills, or narcotics. If you're prone to seizures, Ultram can make you more likely to have a seizure. Ultram can be hazardous when combined with MAO-inhibitor antidepressants (such as Nardil or Parnate). Be sure your doctor is aware of all medicines you are taking. Persons with severe liver or kidney disease should increase the time between doses of Ultram. Discuss this with your doctor if you're uncertain. Side effects of Ultram can include dizziness, nausea, constipation, sleepiness, and itching. (These side effects are also seen with narcotic pain medicines.) Please call your doctor if you have other disturbing effects. Antinausea Medication You have been given a medication to suppress nausea and vomiting. This type of medication can be given as a shot, pill, or suppository. It will usually last for many hours. Pills and shots usually last six to eight hours, suppositories last about 12 hours. For the typical illness, only one or two doses of the medication may be necessary. Mild lightheadedness may occur. This type of medicine can cause drowsiness. Do not drive or operate dangerous machinery while under its influence. Do not mix with alcohol. See your doctor at once if you have muscle spasms or tightness, or uncontrollable motions (particularly of the neck, mouth, or jaw). Persistent vomiting or severe lightheadedness should also be evaluated by the physician. FOLLOW-UP CARE: If you have been referred to a physician for follow-up care, call the physician s office for an appointment as you were instructed or within the next two days. If you experience worsening or a significant change in your symptoms, notify the physician immediately or return to the Emergency Department at any time for re-evaluation. Prescriptions: Tramadol HCl [Ultram 50 mg Tablet] 50 mg PO Q4HP PRN #15 tab PRN Reason: Ondansetron [Zofran Odt 4 mg Tablet] 1 - 2 tab PO Q4H PRN #15 tab.rapdis PRN Reason: For Nausea/Vomiting Referrals: EMILIANO HARTLEY MD [Primary Care Provider] - Follow up as needed
[2018-07-05] MEDS ORDERED: TRAMADOL HCL 50 MG TABLET PO ONE (14:37)
--- NOTE | 2018-07-05 15:01 | RADIOLOGY REPORT (SQ) ---
EXAM DESCRIPTION: CT LTD RENAL STONE PROTOCOL ON COMPLETED DATE/TIME: 07/05/2018 2:46 pm REASON FOR STUDY: Left flank pain and blood in urine. COMPARISON: None. TECHNIQUE: CT scan of the abdomen and pelvis performed without intravenous or oral contrast. Images reviewed with lung, soft tissue, and bone windows. Reconstructed coronal and sagittal MPR images revi ewed. All images stored on PACS. All CT scanners at this facility use dose modulation, iterative reconstruction, and/or weight based d osing when appropriate to reduce radiation dose to as low as reasonably achievable (ALARA). [facility]: Dose Right [facility]: CareDose [facility]: Dose Right [facility]: Teradose 4D [facility]: Smart Funder[employer] RADIATION DOSE: CT Rad equipment meets quality standard of care and radiation dose reduction techniq ues were employed. CTDIvol: 9.4 mGy. DLP: 551 mGy-cm.mGy. LIMITATIONS: None. FINDINGS: LOWER CHEST: There is minimal left basilar atelectasis. NON-CONTRASTED LIVER, SPLEEN, ADRENALS: Evaluation limited by lack of IV contrast. No identified sign ificant masses. PANCREAS: No masses. No peripancreatic inflammatory changes. GALLBLADDER: No identified stones by CT criteria. No inflammatory changes to suggest cholecystitis. RIGHT KIDNEY AND URETER: No suspicious masses. Assessment limited by lack of IV contrast. No signif icant calcifications. No hydronephrosis or hydroureter. LEFT KIDNEY AND URETER: No suspicious masses. Assessment limited by lack of IV contrast. No signifi cant calcifications. No hydronephrosis or hydroureter. AORTA AND RETROPERITONEUM: No aneurysm. No retroperitoneal masses or adenopathy. BOWEL AND PERITONEAL CAVITY: No obvious masses or inflammatory changes. No free fluid. APPENDIX: Not visualized. PELVIS, BLADDER, AND ABDOMINAL WALL:There are numerous small calcific densities in the pelvis most co nsistent with phleboliths. The bladder is nondistended. BONES: No significant findings. OTHER: No other significant finding. IMPRESSION: No acute findings in the abdomen or pelvis. There are numerous phleboliths in the pelvi s. No definite ureteral stones. COMMENT: Quality ID # [id number]: Final reports with documentation of one or more dose reduction techniques (e.g., Automated exposure control, adjustment of the mA and/or kV according to patient size, use of iterative reconstruction technique) TECHNICAL DOCUMENTATION: JOB ID: [id number] [employer]- All Rights Reserved Reading location - IP/workstation name: [email or web address]
[2018-07-05 15:12] LABS: APPEARANCE,URINE SLIGHTLY-CLOUDY; BILIRUBIN,URINE NEGATIVE (NEGATIVE); COLOR,URINE YELLOW; GLUCOSE, URINE NEGATIVE (NEGATIVE); KETONES,URINE NEGATIVE (NEGATIVE); LEUKOCYTE ESTERASE,URINE NEGATIVE (NEGATIVE); NITRITE,URINE NEGATIVE (NEGATIVE); PROTEIN,URINE NEGATIVE (NEGATIVE); URINE SPECIFIC GRAVITY 1.008; UROBILINOGEN,URINE NEGATIVE mg/dL (<2.0)
[2018-07-05 15:25] VITALS: BP 136/66
== END 2018-07-05 15:37 | disposition home or self-care (01) ==
LOC: ER 12:35
DX: R31.9 Hematuria, unspecified (principal); R10.9 Unspecified abdominal pain; R11.2 Nausea with vomiting, unspecified; R19.7 Diarrhea, unspecified; I10 Essential (primary) hypertension
CPT/HCPCS: 99284; 96372; 36415; 85025; 80053; 81001; 74018; 76380; S0119; J2060

== ENCOUNTER 2018-07-08 01:43 | Emergency (ER) | payer MEDICAID ==
[2018-07-08 01:54] VITALS: BP 131/86
[2018-07-08] MEDS ORDERED: AMOXICILLIN TR/POT CLAVULANATE 500-125 MG TAB PO ONE (01:56)
[2018-07-08] MEDS ORDERED: ONDANSETRON 4 MG TAB.RAPDIS PO ONE (01:57)
[2018-07-08] MEDS ORDERED: ACETAMINOPHEN 325 MG TABLET PO ONE (01:57)
[2018-07-08] MEDS: KETOROLAC TROMETHAMINE 60 MG/2 ML SDV IM ONE ×2 (02:03→02:07)
--- NOTE | 2018-07-08 02:03 | ER Document Report ---
ED General - General Chief Complaint: Cat Bite Stated Complaint: POSSIBLE ANIMAL BITES TO LEFT FOOT Time Seen by Provider: 07/08/18 01:55 Notes: Patient is a 28-year-old female without chronic medical problems who presents after her cat attacked her causing multiple lacerations to the left foot. Patient states that the cat became upset that she did not have enough food to feed it and apparently subsequently attacked her. She states this occurred 2-3 hours prior to arrival. She states that since that time she has had a progressively worsening, dull, throbbing, aching pain to the entirety of the left foot worsened by any movement of the foot or walking. She has not trying to improve the pain. The cat actually attacked her earlier this year on the right foot resulting in hospitalization due to cellulitis. She states that the cat has not yet received a rabies vaccination that she does not have the money to purchase this. She notes that the cat has not demonstrated any signs of aggression or being rabid. She has not seen her primary care doctor regarding today's concerns. She denies fever or constitutional symptoms. Admits to feeling highly anxious about today's events. TRAVEL OUTSIDE OF THE [place] IN LAST 30 DAYS: No - Related Data Allergies/Adverse Reactions: erythromycin base [Erythromycin Base] Allergy (Mild, Verified 07/08/18 01:52) VOMITING Past Medical History - General Information source: Patient - Social History Smoking Status: Current Every Day Smoker Frequency of alcohol use: Occasional Drug Abuse: None Lives with: Family Family History: Reviewed & Not Pertinent Patient has suicidal ideation: No Patient has homicidal ideation: No - Past Medical History Cardiac Medical History: Reports: Hx Hypertension Pulmonary Medical History: Reports: Hx Pneumonia Renal/ Medical History: Denies: Hx Peritoneal Dialysis Psychiatric Medical History: Reports: Hx Bipolar Disorder, Hx Depression Past Surgical History: Reports: Hx Myringotomy - Immunizations Hx Diphtheria, Pertussis, Tetanus Vaccination: Yes Review of Systems - Review of Systems Notes: Constitutional: Negative for fever. HENT: Negative for sore throat. Eyes: Negative for visual changes. Cardiovascular: Negative for chest pain. Respiratory: Negative for shortness of breath. Gastrointestinal: Negative for abdominal pain, vomiting or diarrhea. Genitourinary: Negative for dysuria. Musculoskeletal: Negative for back pain. Skin: Positive for multiple lacerations to the left foot Neurological: Negative for headaches, weakness or numbness. 10 point ROS negative except as marked above and in HPI. Physical Exam - Vital signs Vitals: Temp Pulse Resp BP Pulse Ox 98.1 F 121 H 18 131/86 H 98 07/08/18 01:49 07/08/18 01:49 07/08/18 01:49 07/08/18 01:49 07/08/18 01:49 Interpretation: Normal Notes: PHYSICAL EXAMINATION: GENERAL: Extremely anxious, tearful HEAD: Atraumatic, normocephalic. EYES: sclera anicteric, conjunctiva are normal. ENT: Moist mucous membranes. NECK: Normal range of motion LUNGS: Normal work of breathing HEART: 2+ DP pulses bilaterally EXTREMITIES: no pitting or edema. No cyanosis. NEUROLOGICAL: No focal neurological deficits. Moves all extremities spontaneously and on command. PSYCH: Highly anxious, tearful SKIN: Warm, Dry, normal turgor, 2 superficial lacerations over the dorsum of the left foot Course - Re-evaluation Re-evalutation: 07/08/18 01:58 Patient presents with a cat bite to her left foot. This is her cat that attacked her and the cat has attacked her on a previous occasion resulting in hospitalization for cellulitis on the right foot. There are 2 superficial puncture wounds over the dorsum of the right foot. No appreciable erythema or drainage. No evidence of retained foreign body. Wounds were cleaned, irrigated. Patient has been started on Augmentin prophylaxis. Tetanus is already up-to-date. The vaccination status of the cat is unknown although the patient notes that the cat did not demonstrate any signs of being rabid. A risks and benefits conversation regarding proceeding with a rabies immunoglobulin and rabies vaccination series was had with the patient. I informed the patient that the likelihood of transmission of rabies from a dog bite is very low but is not 0. I likewise informed the patient that if they were to develop rabies they would . The risks of proceeding with rabies vaccination and immunoglobulin therapy were also discussed. After this conversation, the patient elected to avoid proceeding with rabies immunoglobulin and rabies vaccination at this time. The patient has capacity. I have strongly advised the patient to have the cat quarantined by animal control but she became extremely tearful and anxious at the suggestion stating that she would not do so and continue to monitor the cat on her own. At this time will discharge with return precautions and follow-up recommendations. Verbal discharge instructions given a the bedside and opportunity for questions given. Medication warnings reviewed. Patient is in agreement with this plan and has verbalized understanding of return precautions and the need for primary care follow-up in the next 24-72 hours. - Vital Signs Vital signs: Temp Pulse Resp BP Pulse Ox 98.1 F 121 H 18 131/86 H 98 07/08/18 01:49 07/08/18 01:49 07/08/18 01:49 07/08/18 01:49 07/08/18 01:49 Discharge - Discharge Clinical Impression: Cat bite of left foot Qualifiers: Encounter type: initial encounter Qualified Code(s): S91.352A - Open bite, left foot, initial encounter; W55.01XA - Bitten by cat, initial encounter; W55.01XA - Bitten by cat, initial encounter Condition: Good Disposition: HOME, SELF-CARE Additional Instructions: Please monitor very closely for any signs of infection from your cat bite including spreading redness from the area, pus from the wound, or worsening pain. Clean the area twice daily with soap and water and then apply topical antibiotic ointment. Please take all the antibiotics that you were prescribed until they are gone. Follow-up with your primary care physician as needed. Referrals: EMILIANO HARTLEY MD [Primary Care Provider] - Follow up as needed
== END 2018-07-08 03:07 | disposition home or self-care (01) ==
LOC: ER 01:43
DX: S91.352A Open bite, left foot, initial encounter (principal); W55.01XA Bitten by cat, initial encounter; Y92.009 Unspecified place in unspecified non-institutional (private) residence as the place of occurrence of the external cause; Z88.3 Allergy status to other anti-infective agents; F17.200 Nicotine dependence, unspecified, uncomplicated; I10 Essential (primary) hypertension
CPT/HCPCS: 99283; 96372; J3490 ×2; J1885; S0119

== ENCOUNTER 2018-08-22 19:45 | Emergency (ER) | payer MEDICAID ==
[2018-08-22] MEDS ORDERED: FAMOTIDINE 20 MG TABLET PO ONE (20:15)
[2018-08-22] MEDS ORDERED: ONDANSETRON 4 MG TAB.RAPDIS PO ONE (20:15)
--- NOTE | 2018-08-22 20:20 | ER Document Report ---
ED Medical Screen (RME) - General Chief Complaint: Dizziness Stated Complaint: DIZZY/TOOTH PAIN Time Seen by Provider: 08/22/18 20:13 Primary Care Provider: EMILIANO HARTLEY MD [Primary Care Provider] - Follow up as needed Notes: 28-year-old female that complains of feeling "strange", feeling pain in her upper abdomen, nausea, lightheadedness. She keeps repeating that she feels extremely "weird". She states that for the past 3 days she has been taking a large amount of BC powder and she is also taking acetaminophen and ibuprofen for a toothache, she is unable to tell me how many doses or how much she has taken at this time because she is crying and having difficulty recalling specifics at the moment. She denies vomiting, fever, chest pain, shortness of breath. TRAVEL OUTSIDE OF THE [place] IN LAST 30 DAYS: No - Related Data Allergies/Adverse Reactions: erythromycin base [Erythromycin Base] Allergy (Mild, Verified 07/08/18 01:52) VOMITING Past Medical History - Social History Chew tobacco use (# tins/day): No Frequency of alcohol use: None Drug Abuse: None - Past Medical History Cardiac Medical History: Reports: Hx Hypertension Pulmonary Medical History: Reports: Hx Pneumonia Renal/ Medical History: Denies: Hx Peritoneal Dialysis Psychiatric Medical History: Reports: Hx Bipolar Disorder, Hx Depression Past Surgical History: Reports: Hx Myringotomy - Immunizations Hx Diphtheria, Pertussis, Tetanus Vaccination: Yes History of Influenza Vaccine for 04/2017 - 09/2017 Season: Refused Physical Exam - Vital signs Vitals: Temp Pulse Resp BP Pulse Ox 97.9 F 96 17 141/97 H 100 08/22/18 19:52 08/22/18 19:52 08/22/18 19:52 08/22/18 19:52 08/22/18 19:52 - Respiratory Respiratory status: No respiratory distress Breath sounds: Normal. No: Wheezing - Psychological Associated symptoms: Agitated, Anxious Course - Re-evaluation Re-evalutation: Attempted to calm patient and have her give specifics about how much salicylate she has been taking, she states that she "does not know" but then states that she is taking "double doses multiple times a day for the past 3 days". Still unable to give specifics. Follows commands and is alert. Vitals unremarkable. Performing general workup, suspect she has gastritis, uncertain of medication toxicity levels. - Vital Signs Vital signs: Temp Pulse Resp BP Pulse Ox 97.9 F 96 17 141/97 H 100 08/22/18 19:52 08/22/18 19:52 08/22/18 19:52 08/22/18 19:52 08/22/18 19:52 Doctor's Discharge - Discharge Referrals: EMILIANO HARTLEY MD [Primary Care Provider] - Follow up as needed
--- NOTE | 2018-08-22 21:08 | EKG REPORT ---
SEVERITY:- OTHERWISE NORMAL ECG - SINUS TACHYCARDIA : Confirmed by: Leonor Smith MD 22-Aug-2018 21:07:33
[2018-08-22 21:18] LABS: ABSOLUTE BASOPHILS # (AUTO) 0.1 10^3/uL (0.0-0.2); ABSOLUTE EOSINOPHILS # (AUTO) 0.3 10^3/uL (0.0-0.6); ABSOLUTE LYMPHOCYTES (AUTO) 4.6 10^3/uL (0.5-4.7); ABSOLUTE MONOCYTES (AUTO) 0.7 10^3/uL (0.1-1.4); ABSOLUTE NEUT (AUTO) 5.1 10^3/uL (1.7-8.2); BASOPHILS % (AUTO) 0.8 % (0-2); EOSINOPHILS % (AUTO) 2.9 % (0-6); HEMATOCRIT 40.8 % (36.0-47.0); HEMOGLOBIN 13.8 g/dL (12.0-15.5); LYMPHOCYTES % (AUTO) 42.9 % (13-45); MEAN CORPUSCULAR HEMOGLOBIN 27.4 pg (27.0-33.4); MEAN CORPUSCULAR HGB CONC 33.9 g/dL (32.0-36.0); MEAN CORPUSCULAR VOLUME 81 fl (80-97); MONOCYTES % (AUTO) 6.3 % (3-13); PLATELET COUNT 476 10^3/uL (150-450); RED BLOOD COUNT 5.05 10^6/uL (3.72-5.28); RED CELL DISTRIBUTION WIDTH 14.6 % (11.5-14.0); SEGMENTED NEUTROPHILS % (AUTO) 47.1 % (42-78); TOTAL CELLS COUNTED % (AUTO) 100 %; WHITE BLOOD COUNT 10.8 10^3/uL (4.0-10.5)
[2018-08-22] MEDS ORDERED: HYDROCODONE/ACETAMINOPHEN 5-325 MG TABLET PO ONE ×2 (21:29→23:48)
[2018-08-22] MEDS ORDERED: NORMAL SALINE 1000 ML 1,000 ML IV ONE (21:29)
[2018-08-22] MEDS ORDERED: AMOXICILLIN TRIHYDRATE 500 MG CAPSULE PO ONE (21:29)
[2018-08-22] MEDS ORDERED: MAG HYDROX/AL HYDROX/SIMETH SUSP 30 ML UDCUP PO ONE (21:30)
[2018-08-22] MEDS ORDERED: LIDOCAINE 2% VISCOUS SOLN 20 ML UDCUP PO ONE ×2 (21:30→23:47)
[2018-08-22] MEDS ORDERED: METOCLOPRAMIDE HCL ORAL SOLN 10 MG/10 ML UDCUP PO ONE (21:30)
--- NOTE | 2018-08-22 21:30 | ER Document Report ---
ED General - General Chief Complaint: Dizziness Stated Complaint: DIZZY/TOOTH PAIN Time Seen by Provider: 08/22/18 20:13 Primary Care Provider: EMILIANO HARTLEY MD [Primary Care Provider] - Follow up as needed Notes: 28-year-old female patient emergency department chief complaint of left upper molar toothache. Patient states that she has been taking aspirin and Tylenol all day long and now her it is hurting to. Complaining of burning in the left upper quadrant. No vomiting. No diarrhea. No chest pain. No shortness of breath. States that she does feel weak and hurts all over. TRAVEL OUTSIDE OF THE [place] IN LAST 30 DAYS: No - HPI Onset: This morning Onset/Duration: Gradual, Constant, Worse Quality of pain: Cramping, Sharp Severity: Moderate - Related Data Allergies/Adverse Reactions: erythromycin base [Erythromycin Base] Allergy (Mild, Verified 07/08/18 01:52) VOMITING Past Medical History - General Information source: Patient - Social History Smoking Status: Current Every Day Smoker Chew tobacco use (# tins/day): No Frequency of alcohol use: None Drug Abuse: None Lives with: Family Family History: Reviewed & Not Pertinent Patient has suicidal ideation: No Patient has homicidal ideation: No - Past Medical History Cardiac Medical History: Reports: Hx Hypertension Pulmonary Medical History: Reports: Hx Pneumonia Renal/ Medical History: Denies: Hx Peritoneal Dialysis Psychiatric Medical History: Reports: Hx Bipolar Disorder, Hx Depression Past Surgical History: Reports: Hx Myringotomy - Immunizations Hx Diphtheria, Pertussis, Tetanus Vaccination: Yes Review of Systems - Review of Systems Notes: Constitutional: denies: Chills, Diaphoresis, Fever, Malaise, +Weakness EENT: denies: Eye discharge, Blurred vision, Tearing, Double vision, Nose congestion, Nose discharge, Throat swelling, + dental/mouth pain Cardiovascular: denies: Palpitations, Heart racing, Orthopnea, Dyspnea, Chest pain Respiratory: denies: Cough, Hurts to breathe, Wheezing, Shortness of breath Gastrointestinal: denies: Diarrhea, Nausea, Vomiting, Black stools, bright red blood in stool. Abdominal pain in the left upper quadrant Genitourinary: denies: Burning, Dysuria, Discharge, Frequency, Flank pain, Hematuria Musculoskeletal: denies: Joint pain, Joint swelling, Muscle pain, Muscle stiffness, back pain Hematologic/Lymphatic: denies: Anemia, Easy bleeding, Easy bruising, Blood clots Neurological/Psychological: denies: Confusion, Dementia, Depression, Loss of consciousness Skin: No lesions, no masses, no skin breakdown, no abscesses Physical Exam - Vital signs Vitals: Temp Pulse Resp BP Pulse Ox 97.9 F 96 17 141/97 H 100 08/22/18 19:52 08/22/18 19:52 08/22/18 19:52 08/22/18 19:52 08/22/18 19:52 Interpretation: Normal - General General appearance: Alert, Anxious, Other - Agitated In distress: Mild Notes: Crying and squirming around on the bed holding her abdomen - HEENT Head: Normocephalic, Atraumatic Eyes: Normal Pupils: PERRL Mouth/Lips: Other - Multiple areas of dental caries. No obvious abscess. No significant gumline erythema. No bleeding. Teeth diagram: 1 - Dental fracture with decay 2 - Dental decay - Respiratory Respiratory status: No respiratory distress Chest status: Nontender Breath sounds: Normal Chest palpation: Normal - Cardiovascular Rhythm: Tachycardia Heart sounds: Normal auscultation Murmur: No - Abdominal Inspection: Normal Distension: No distension Bowel sounds: Normal Tenderness: Nontender Organomegaly: No organomegaly - Back Back: Normal, Nontender - Extremities General upper extremity: Normal inspection, Nontender, Normal color, Normal ROM, Normal temperature General lower extremity: Normal inspection, Nontender, Normal color, Normal ROM, Normal temperature, Normal weight bearing. No: Elise's sign - Neurological Neuro grossly intact: Yes Cognition: Normal Orientation: AAOx4 Vinayak Coma Scale Eye Opening: Spontaneous [place] Coma Scale Verbal: Oriented [place] Coma Scale Motor: Obeys Commands [place] Coma Scale Total: 15 Speech: Normal Motor strength normal: LUE, RUE, LLE, RLE Sensory: Normal - Psychological Associated symptoms: Normal affect, Normal mood - Skin Skin Temperature: Warm Skin Moisture: Dry Skin Color: Normal Course - Re-evaluation Re-evalutation: 08/22/18 22:24 Based on the fact the patient reportedly taking a whole bunch of aspirin and Tylenol and ibuprofen labs have been ordered. Patient does have aspirin in her bloodstream as well as Tylenol. Uncertain when last ingestion was so will need a 4-hour Tylenol and aspirin level. Patient is on the monitor. I am giving her fluids. A chest x-ray was taken to make sure that she does not have any free air under the diaphragm due to aspirin ingestion and possible gastric irritation with unlikely perforation. GI cocktail ordered. Pepcid ordered. Zofran ordered. Fluid. Pain medication and antibiotics ordered. 08/22/18 22:27 Laboratory 08/22/18 08/22/18 08/22/18 20:58 20:58 20:58 WBC 10.8 H RBC 5.05 Hgb 13.8 Hct 40.8 MCV 81 MCH 27.4 MCHC 33.9 RDW 14.6 H Plt Count 476 H Seg Neutrophils % 47.1 Lymphocytes % 42.9 Monocytes % 6.3 Eosinophils % 2.9 Basophils % 0.8 Absolute Neutrophils 5.1 Absolute Lymphocytes 4.6 Absolute Monocytes 0.7 Absolute Eosinophils 0.3 Absolute Basophils 0.1 Sodium 138.7 Potassium 4.5 Chloride 107 Carbon Dioxide 26 Anion Gap 6 BUN 11 Creatinine 0.76 Est GFR ( Amer) > 60 Est GFR (Non-Af Amer) > 60 Glucose 87 Calcium 9.7 Total Bilirubin 0.3 Direct Bilirubin 0.1 Neonat Total Bilirubin Not Reportable Neonat Direct Bilirubin Not Reportable Neonat Indirect Bili Not Reportable AST 24 ALT 23 Alkaline Phosphatase 79 Total Protein 7.3 Albumin 4.4 Lipase 35.1 Serum HCG, Qual NEGATIVE Urine Color Urine Appearance Urine pH Ur Specific [place] Urine Protein Urine Glucose (UA) Urine Ketones Urine Blood Urine Nitrite Urine Bilirubin Urine Urobilinogen Ur Leukocyte Esterase Urine WBC (Auto) Urine RBC (Auto) Squamous Epi Cells Auto Urine Mucus (Auto) Urine Ascorbic Acid Salicylates 18.8 Urine Opiates Screen Urine Methadone Screen Acetaminophen 19 Ur Barbiturates Screen Ur Phencyclidine Scrn Ur Amphetamines Screen U Benzodiazepines Scrn Urine Cocaine Screen U Marijuana (THC) Screen 08/22/18 08/22/18 20:58 20:58 WBC RBC Hgb Hct MCV MCH MCHC RDW Plt Count Seg Neutrophils % Lymphocytes % Monocytes % Eosinophils % Basophils % Absolute Neutrophils Absolute Lymphocytes Absolute Monocytes Absolute Eosinophils Absolute Basophils Sodium Potassium Chloride Carbon Dioxide Anion Gap BUN Creatinine Est GFR ( Amer) Est GFR (Non-Af Amer) Glucose Calcium Total Bilirubin Direct Bilirubin Neonat Total Bilirubin Neonat Direct Bilirubin Neonat Indirect Bili AST ALT Alkaline Phosphatase Total Protein Albumin Lipase Serum HCG, Qual Urine Color STRAW Urine Appearance CLEAR Urine pH 6.0 Ur Specific [place] 1.005 Urine Protein NEGATIVE Urine Glucose (UA) NEGATIVE Urine Ketones NEGATIVE Urine Blood NEGATIVE Urine Nitrite NEGATIVE Urine Bilirubin NEGATIVE Urine Urobilinogen NEGATIVE Ur Leukocyte Esterase NEGATIVE Urine WBC (Auto) 1 Urine RBC (Auto) 0 Squamous Epi Cells Auto <1 Urine Mucus (Auto) RARE Urine Ascorbic Acid NEGATIVE Salicylates Urine Opiates Screen UNCONFIRMED POSITIVE Urine Methadone Screen NEGATIVE Acetaminophen Ur Barbiturates Screen NEGATIVE Ur Phencyclidine Scrn NEGATIVE Ur Amphetamines Screen UNCONFIRMED POSITIVE U Benzodiazepines Scrn NEGATIVE Urine Cocaine Screen NEGATIVE U Marijuana (THC) Screen NEGATIVE 08/22/18 22:27 Review of patient's board of pharmacy narcotic/controlled substance reveals she is receiving multiple high risk medications including narcotics, long-acting benzodiazepines as well as amphetamines. She did not listed as high as risk ca tegory as far as potential for overdose. Patient should not be discharged on narcotic pain medication. 08/22/18 23:41 Repeat Tylenol and aspirin level not gone output gone down. Will DC at this time. - Vital Signs Vital signs: Temp Pulse Resp BP Pulse Ox 97.9 F 96 17 141/97 H 100 08/22/18 19:52 08/22/18 19:52 08/22/18 19:52 08/22/18 19:52 08/22/18 19:52 - Laboratory Result Diagrams: 08/22/18 20:58 08/22/18 20:58 Laboratory results interpreted by me: 08/22/18 20:58 WBC 10.8 H RDW 14.6 H Plt Count 476 H Discharge - Discharge Clinical Impression: Dental caries, NSAID induced gastritis Condition: Good Disposition: HOME, SELF-CARE Instructions: Gastritis (OM), Toothache (OM) Additional Instructions: Stop taking aspirin and NSAIDs inappropriately. You can take up to 3 g of Tylenol a day but no more. Do not take more than 2400 mg of ibuprofen a day. Long-term use of aspirin can lead to toxicity. Do not use BC powders or aspirin as there is no significant benefit and the risk of gastritis and pain in the stomach is significant. Take your antibiotics for your dental pain. Take the rest of your regular medications as instructed. Prescriptions: Amoxicillin 1 tab PO TID 10 Days #30 tab Ranitidine HCl [Zantac] 150 mg PO BID 10 Days #20 tablet Sucralfate [Carafate 1 gm Tablet] 1 gm PO ACHS #120 tablet Referrals: EMILIANO HARTLEY MD [Primary Care Provider] - Follow up as needed
[2018-08-22 21:38] LABS: ACETAMINOPHEN 19 ug/mL (10-30); ALANINE AMINOTRANSFERASE 23 U/L (9-52); ALBUMIN 4.4 g/dL (3.5-5.0); ALKALINE PHOSPHATASE 79 U/L (38-126); ANION GAP 6 (5-19); ASPARTATE AMINO TRANSFERASE 24 U/L (14-36); BILIRUBIN,DIRECT 0.1 mg/dL (0.0-0.4); BILIRUBIN,TOTAL 0.3 mg/dL (0.2-1.3); BLOOD UREA NITROGEN 11 mg/dL (7-20); CALCIUM 9.7 mg/dL (8.4-10.2); CARBON DIOXIDE 26 mmol/L (22-30); CHLORIDE 107 mmol/L (98-107); GLUCOSE 87 mg/dL (75-110); LIPASE 35.1 U/L (23-300); POTASSIUM 4.5 mmol/L (3.6-5.0); SALICYLATE 18.8 mg/dL (2.0-20.0); SODIUM 138.7 mmol/L (137-145); TOTAL PROTEIN 7.3 g/dL (6.3-8.2)
[2018-08-22 21:45] LABS: APPEARANCE,URINE CLEAR; BILIRUBIN,URINE NEGATIVE (NEGATIVE); COLOR,URINE STRAW; GLUCOSE, URINE NEGATIVE (NEGATIVE); KETONES,URINE NEGATIVE (NEGATIVE); LEUKOCYTE ESTERASE,URINE NEGATIVE (NEGATIVE); NITRITE,URINE NEGATIVE (NEGATIVE); PROTEIN,URINE NEGATIVE (NEGATIVE); URINE SPECIFIC GRAVITY 1.005; UROBILINOGEN,URINE NEGATIVE mg/dL (<2.0)
[2018-08-22 22:07] LABS: URINE AMPHETAMINES SCREEN UNCONFIRMED POSITIVE; URINE BARBITURATES SCREEN NEGATIVE; URINE BENZODIAZEPINES SCREEN NEGATIVE; URINE COCAINE SCREEN NEGATIVE; URINE MARIJUANA (THC) SCREEN NEGATIVE; URINE METHADONE SCREEN NEGATIVE; URINE PHENCYCLIDINE SCREEN NEGATIVE
--- NOTE | 2018-08-22 22:47 | RADIOLOGY REPORT (SQ) ---
EXAM DESCRIPTION: XR CHEST 1 VIEW COMPLETED DATE/TME: 08/22/2018 22:23 CLINICAL HISTORY: 28 years, Female, upper abd pain Findings: Heart is not enlarged. Lungs are clear. No pneumothorax. No pleural effusions. IMPRESSION: No acute disease.
[2018-08-22 23:31] LABS: SALICYLATE 18.6 mg/dL (2.0-20.0)
[2018-08-23 00:13] VITALS: BP 133/97
== END 2018-08-23 00:22 | disposition home or self-care (01) ==
LOC: ER 19:45
DX: K02.9 Dental caries, unspecified (principal); K29.60 Other gastritis without bleeding; R42 Dizziness and giddiness; F17.200 Nicotine dependence, unspecified, uncomplicated; Z88.3 Allergy status to other anti-infective agents
CPT/HCPCS: 93005; 99284; 36415; 83690; 80307 ×3; 84703; 85025; 80053; 81001; 71045; 93010; J3490 ×5; S0119; J7030; 96360

== ENCOUNTER 2018-11-04 16:11 | Emergency (ER) | payer MEDICAID ==
--- NOTE | 2018-11-04 17:12 | ER Document Report ---
ED Medical Screen (RME) - General Chief Complaint: Breathing Difficulty Stated Complaint: DIFFICULTY BREATHING Time Seen by Provider: 11/04/18 17:09 Primary Care Provider: EMILIANO HARTLEY MD [Primary Care Provider] - Follow up as needed Mode of Arrival: Ambulatory Information source: Patient Notes: 28-year-old female presents to ED for complaint of cough cold congestion for about 2-3 weeks with an increase in difficulty breathing weakness and dizziness today. She states she has a history of high blood pressure and she takes her medication as prescribed. When I checked her blood pressure it was elevated pupils of her triple. Her apical pulse is 104-122. Lungs are clear to auscultation but she states she is very short of breath. There are no wheezes noted. O2 sats 100%. She is here with her daughter who is also got a cough cold congestion. I have greeted and performed a rapid initial assessment of this patient. A comprehensive ED assessment and evaluation of the patient, analysis of test results and completion of medical decision making process will be conducted by an additional ED providers. TRAVEL OUTSIDE OF THE [place] IN LAST 30 DAYS: No - Related Data Allergies/Adverse Reactions: erythromycin base [Erythromycin Base] Allergy (Mild, Verified 07/08/18 01:52) VOMITING Past Medical History - Past Medical History Cardiac Medical History: Reports: Hx Hypertension Pulmonary Medical History: Reports: Hx Pneumonia Renal/ Medical History: Denies: Hx Peritoneal Dialysis Psychiatric Medical History: Reports: Hx Bipolar Disorder, Hx Depression Past Surgical History: Reports: Hx Myringotomy - Immunizations Hx Diphtheria, Pertussis, Tetanus Vaccination: Yes History of Influenza Vaccine for 04/2017 - 09/2017 Season: Refused Physical Exam - Vital signs Vitals: Temp Pulse Resp BP Pulse Ox 99.0 F 115 H 16 163/110 H 99 11/04/18 16:29 11/04/18 16:29 11/04/18 16:29 11/04/18 16:29 11/04/18 16:29 Course - Vital Signs Vital signs: Temp Pulse Resp BP Pulse Ox 99.0 F 115 H 16 163/110 H 99 11/04/18 16:29 11/04/18 16:29 11/04/18 16:29 11/04/18 16:29 11/04/18 16:29 Doctor's Discharge - Discharge Referrals: EMILIANO HARTLEY MD [Primary Care Provider] - Follow up as needed
--- NOTE | 2018-11-04 17:57 | RADIOLOGY REPORT (SQ) ---
EXAM DESCRIPTION: CHEST 2 VIEWS COMPLETED DATE/TIME: 11/04/2018 5:26 pm REASON FOR STUDY: cough congestion for 3 weeks COMPARISON: 08/22/2018 NUMBER OF VIEWS: Two view. TECHNIQUE: Frontal and lateral radiographic views of the chest acquired. LIMITATIONS: None. FINDINGS: LUNGS AND PLEURA: Peribronchial cuffing and interstitial changes. Mild subsegmental atele ctasis in the left medial lung base. No dense consolidation, effusion, or pneumothorax. MEDIASTINUM AND HILAR STRUCTURES: No masses. No contour abnormalities. HEART AND VASCULAR STRUCTURES: Heart normal in size and contour. No evidence for failure. BONES: No acute findings. HARDWARE: None in the chest. OTHER: No other significant finding. IMPRESSION: Peribronchial cuffing and interstitial changes. Mild subsegmental atelectasis in the le ft medial lung base. No dense consolidation, effusion, or pneumothorax. TECHNICAL DOCUMENTATION: JOB ID: [id number] [employer]- All Rights Reserved Reading location - IP/workstation name: [email or web address]
[2018-11-04 18:37] LABS: ABSOLUTE EOSINOPHILS # (AUTO) 0.1 10^3/uL (0.0-0.6); ABSOLUTE LYMPHOCYTES (AUTO) 0.9 10^3/uL (0.5-4.7); ABSOLUTE MONOCYTES (AUTO) 0.6 10^3/uL (0.1-1.4); ABSOLUTE NEUT (AUTO) 4.5 10^3/uL (1.7-8.2); BASOPHILS % (AUTO) 0.3 % (0-2); EOSINOPHILS % (AUTO) 0.8 % (0-6); HEMATOCRIT 39.6 % (36.0-47.0); HEMOGLOBIN 13.5 g/dL (12.0-15.5); LYMPHOCYTES % (AUTO) 14.8 % (13-45); MEAN CORPUSCULAR HEMOGLOBIN 27.7 pg (27.0-33.4); MEAN CORPUSCULAR HGB CONC 34.2 g/dL (32.0-36.0); MEAN CORPUSCULAR VOLUME 81 fl (80-97); MONOCYTES % (AUTO) 9.7 % (3-13); PLATELET COUNT 367 10^3/uL (150-450); RED BLOOD COUNT 4.88 10^6/uL (3.72-5.28); RED CELL DISTRIBUTION WIDTH 14.2 % (11.5-14.0); SEGMENTED NEUTROPHILS % (AUTO) 74.4 % (42-78); TOTAL CELLS COUNTED % (AUTO) 100 %; WHITE BLOOD COUNT 6.1 10^3/uL (4.0-10.5)
[2018-11-04 18:54] LABS: ALANINE AMINOTRANSFERASE 21 U/L (9-52); ALBUMIN 3.9 g/dL (3.5-5.0); ALKALINE PHOSPHATASE 71 U/L (38-126); ANION GAP 8 (5-19); ASPARTATE AMINO TRANSFERASE 19 U/L (14-36); BILIRUBIN,DIRECT 0.2 mg/dL (0.0-0.4); BILIRUBIN,TOTAL 0.3 mg/dL (0.2-1.3); BLOOD UREA NITROGEN 7 mg/dL (7-20); CALCIUM 9.6 mg/dL (8.4-10.2); CARBON DIOXIDE 26 mmol/L (22-30); CHLORIDE 106 mmol/L (98-107); GLUCOSE 87 mg/dL (75-110); POTASSIUM 4.6 mmol/L (3.6-5.0); SODIUM 139.5 mmol/L (137-145); TOTAL PROTEIN 6.8 g/dL (6.3-8.2)
[2018-11-04] MEDS ORDERED: DOXYCYCLINE HYCLATE 100 MG TABLET PO ONE (19:09)
[2018-11-04] MEDS ORDERED: DIPHENHYDRAMINE HCL 50 MG CAPSULE PO ONE (19:09)
[2018-11-04] MEDS ORDERED: METOCLOPRAMIDE HCL ORAL SOLN 10 MG/10 ML UDCUP PO ONE (19:09)
[2018-11-04] MEDS ORDERED: KETOROLAC TROMETHAMINE 10 MG TABLET PO ONE (19:09)
[2018-11-04] MEDS ORDERED: GUAIFENESIN/CODEINE PHOS 100-10 MG/ 5 ML UDC PO ONE (19:10)
[2018-11-04] MEDS ORDERED: IPRATROPIUM/ALBUTEROL 0.5-2.5 MG/3 ML AMPUL NEB ONE (19:10)
--- NOTE | 2018-11-04 19:13 | ER Document Report ---
ED General - General Chief Complaint: Breathing Difficulty Stated Complaint: DIFFICULTY BREATHING Time Seen by Provider: 11/04/18 17:09 Primary Care Provider: EMILIANO HARTLEY MD [NO LOCAL MD] - Follow up as needed Mode of Arrival: Ambulatory Information source: Patient Notes: 28-year-old female with hypertension, bipolar disorder presents with 3 weeks of cough, congestion, right-sided rib pain and 1 day of headache. Patient states cough was initially intermittent now constant. She does have a productive cough with clear sputum. Patient reports that she fell a few days ago striking her back on the washing machine. She denies any head injury, loss of consciousness. She has had sick contacts with a daughter and has been who have similar symptoms and were recently diagnosed with pneumonia. Patient headache is described as generalized, throbbing. TRAVEL OUTSIDE OF THE [place] IN LAST 30 DAYS: No - HPI Onset: Other Onset/Duration: Intermittent, Worse Quality of pain: Achy, Pressure, Throbbing Severity: Moderate Associated symptoms: Body/muscle aches, Chills, Productive cough, Headache, Shortness of breath Exacerbated by: Coughing Relieved by: Denies Similar symptoms previously: Yes Recently seen / treated by doctor: Yes - Related Data Allergies/Adverse Reactions: erythromycin base [Erythromycin Base] Allergy (Mild, Verified 11/04/18 20:26) VOMITING Past Medical History - General Information source: Patient - Social History Smoking Status: Current Every Day Smoker Cigarette use (# per day): Yes - 10 Smoking Education Provided: Yes - Smoking cessation counseling was provided for 4 minutes at the bedside Frequency of alcohol use: None Drug Abuse: None Lives with: Family Family History: Reviewed & Not Pertinent Patient has suicidal ideation: No Patient has homicidal ideation: No - Past Medical History Cardiac Medical History: Reports: Hx Hypertension Pulmonary Medical History: Reports: Hx Pneumonia Renal/ Medical History: Denies: Hx Peritoneal Dialysis Psychiatric Medical History: Reports: Hx Bipolar Disorder, Hx Depression Past Surgical History: Reports: Hx Myringotomy - Immunizations Hx Diphtheria, Pertussis, Tetanus Vaccination: Yes Review of Systems - Review of Systems Constitutional: Chills, Malaise, Recent illness EENT: Nose congestion. denies: Blurred vision, Difficulty swallowing Cardiovascular: denies: Chest pain, Palpitations, Dizziness, Edema Respiratory: Cough, Short of breath Gastrointestinal: denies: Abdominal pain, Nausea, Vomiting Genitourinary: denies: Dysuria, Flank pain Musculoskeletal: Back pain Skin: Other - Right sided bruising of the right flank Hematologic/Lymphatic: No symptoms reported Neurological/Psychological: Headaches -: Yes All other systems reviewed and negative Physical Exam - Vital signs Vitals: Temp Pulse Resp BP Pulse Ox 99.0 F 115 H 16 163/110 H 99 11/04/18 16:29 11/04/18 16:29 11/04/18 16:29 11/04/18 16:29 11/04/18 16:29 - Notes Notes: PHYSICAL EXAMINATION: GENERAL: Well-appearing, well-nourished and in no acute distress. HEAD: Atraumatic, normocephalic. EYES: Pupils equal round and reactive to light, extraocular movements intact, co njunctiva are normal. ENT: Nares patent, oropharynx clear without exudates. Moist mucous membranes. NECK: Normal range of motion, supple without lymphadenopathy LUNGS: Breath sounds clear to auscultation bilaterally and equal. No wheezes rales or rhonchi. Persistent harsh cough HEART: Regular rate and rhythm without murmurs ABDOMEN: Soft, nontender, nondistended abdomen. No guarding, no rebound. No masses appreciated. Female : deferred Musculoskeletal: Normal range of motion, no pitting or edema. No cyanosis. NEUROLOGICAL: Cranial nerves grossly intact. Normal speech, normal gait. Normal sensory, motor exams PSYCH: Normal mood, normal affect. SKIN: Warm, Dry, normal turgor, no rashes or lesions noted. Course - Re-evaluation Re-evalutation: 11/05/18 00:02 Laboratory 11/04/18 11/04/18 18:08 18:08 WBC 6.1 RBC 4.88 Hgb 13.5 Hct 39.6 MCV 81 MCH 27.7 MCHC 34.2 RDW 14.2 H Plt Count 367 Seg Neutrophils % 74.4 Lymphocytes % 14.8 Monocytes % 9.7 Eosinophils % 0.8 Basophils % 0.3 Absolute Neutrophils 4.5 Absolute Lymphocytes 0.9 Absolute Monocytes 0.6 Absolute Eosinophils 0.1 Absolute Basophils 0.0 Sodium 139.5 Potassium 4.6 Chloride 106 Carbon Dioxide 26 Anion Gap 8 BUN 7 Creatinine 0.60 Est GFR ( Amer) > 60 Est GFR (Non-Af Amer) > 60 Glucose 87 Calcium 9.6 Total Bilirubin 0.3 Direct Bilirubin 0.2 Neonat Total Bilirubin Not Reportable Neonat Direct Bilirubin Not Reportable Neonat Indirect Bili Not Reportable AST 19 ALT 21 Alkaline Phosphatase 71 Total Protein 6.8 Albumin 3.9 Chest X-Ray 11/04/18 17:15 IMPRESSION: Peribronchial cuffing and interstitial changes. Mild subsegmental atelectasis in the left medial lung base. No dense consolidation, effusion, or pneumothorax. Temp Pulse Resp BP Pulse Ox 98.5 F 100 17 132/91 H 100 11/04/18 21:05 11/04/18 21:05 11/04/18 21:05 11/04/18 21:05 11/04/18 21:05 28-year-old female presents with multiple vague complaints including cough, ear pain, sore throat, headache, right upper back pain that has been ongoing for approximately 3 weeks. Vitals reviewed and within normal limits. Patient does not appear toxic or dehydrated. She is in no acute distress. Patient does have a harsh persistent rales. Every time the patient is reevaluated she has no other complaints. CBC, CMP, urinalysis are unremarkable and without leukocytosis, electrolyte abnormality or evidence of infection. Chest x-ray shows peribronchial cuffing. Patient has no increased work of breathing, hypoxia, tachypnea. Her symptoms are consistent with bronchitis, upper respiratory infection. Patient's significant other was recently diagnosed with pneumonia and she is persistent that should be treated for this. Patient was given doxycycline, Robitussin, Reglan and Benadryl, albuterol during her ED course. Smoking cessation advised. Patient discharged home in stable condition. Patient was evaluated and treated as appropriate for the patient's presenting symptoms and complaint, with consideration of any critical or life threatening conditions that may be associated with their obtained history and exam as noted above. All results were discussed with patient and family members who are at the bedside. Patient provided the opportunity to ask questions, and express concerns. Patient was educated on treatments based on their presumed diagnosis as noted above. At this time we will discharge the patient with return precautions and follow-up recommendations. Verbal discharge instructions given a the bedside. Medication warnings reviewed. Patient is in agreement with this plan and has verbalized understanding of return precautions. After careful consideration I feel that that patient can be safely discharged from the emergency department, they were advised to followup with a primary care physician in 2-3 days. Dictation on this chart was performed using voice recognition software and may result in unintended grammatical, spelling, syntax or errors. - Vital Signs Vital signs: Temp Pulse Resp BP Pulse Ox 98.5 F 100 17 132/91 H 100 11/04/18 21:05 11/04/18 21:05 11/04/18 21:05 11/04/18 21:05 11/04/18 21:05 - Laboratory Result Diagrams: 11/04/18 18:08 11/04/18 18:08 Laboratory results interpreted by me: 11/04/18 18:08 RDW 14.2 H - Diagnostic Test Radiology reviewed: Image reviewed, Reports reviewed Discharge - Discharge Clinical Impression: Bronchitis Headache Qualifiers: Headache type: unspecified Headache chronicity pattern: unspecified pattern Intractability: not intractable Qualified Code(s): R51 - Headache URI (upper respiratory infection) Qualifiers: URI type: unspecified URI Qualified Code(s): J06.9 - Acute upper respiratory infection, unspecified Back contusion Qualifiers: Encounter type: initial encounter Laterality: right Qualified Code(s): S20.221A - Contusion of right back wall of thorax, initial encounter Condition: Good Disposition: HOME, SELF-CARE Instructions: Bronchitis ([facility]), Contusion ([facility]), Headache ([facility]), Upper Respiratory Illness ([facility]) Additional Instructions: Follow up with your [id number] hours for further care or return to the ED IMMEDIATELY if symptoms worsen or you have any concerns. If you cannot afford to follow up with your primary care physician a list of low cost clinics have been provided at the end of your discharge papers as well. Most prescribed medications have multiple side effects. The safest thing to do is when filling your prescription speak to your pharmacist regarding possible interactions with your normal home medications and over the counter medications such as Ibuprofen, Tylenol, Benadryl. If you experience any symptoms that cause you discomfort or concern you should discontinue the medication immediately and return to the emergency room or call your primary care physician. You were seen for symptoms most consistent with bronchitis. This can take up to 12 weeks to fully resolve. This is generally due to a viral infection. Please follow-up with your primary doctor in the next 2-3 days. Return if you develop worsening cough, vomiting, fever >100.4, pass out, begin coughing blood, or have any other symptoms that are concerning to you. Please use the medications prescribed today as directed. Prescriptions: Guaifenesin/Codeine Phos [Robitussin-AC Syrup 59 ml] 10 ml PO QHS PRN #50 ml PRN Reason: Cough Doxycycline Hyclate 100 mg PO BID #14 capsule Ibuprofen [Motrin 600 Mg Tablet] 600 mg PO TID #15 tablet Forms: Elevated Blood Pressure, Smoking Cessation Education, Return to Work Referrals: EMILIANO HARTLEY MD [NO LOCAL MD] - Follow up as needed
[2018-11-04] MEDS ORDERED: DIAZEPAM 5 MG TABLET PO ONE (20:31)
[2018-11-04 21:34] VITALS: BP 132/91
== END 2018-11-04 21:05 | disposition home or self-care (01) ==
LOC: ER 16:11
DX: J40 Bronchitis, not specified as acute or chronic (principal); J06.9 Acute upper respiratory infection, unspecified; S20.221A Contusion of right back wall of thorax, initial encounter; W19.XXXA Unspecified fall, initial encounter; W22.03XA Walked into furniture, initial encounter; R51 Headache; J98.11 Atelectasis; R05 Cough; R07.81 Pleurodynia; I10 Essential (primary) hypertension; R68.83 Chills (without fever); R06.02 Shortness of breath; F17.210 Nicotine dependence, cigarettes, uncomplicated; Z71.6 Tobacco abuse counseling; R53.81 Other malaise; R09.81 Nasal congestion; J02.9 Acute pharyngitis, unspecified; H92.09 Otalgia, unspecified ear; Z87.01 Personal history of pneumonia (recurrent); Z88.1 Allergy status to other antibiotic agents
CPT/HCPCS: 94640; 99284; 36415; 85025; 80053; 71046; J3490 ×4; J7620

== ENCOUNTER 2018-12-06 14:57 | Emergency (ER) | payer MEDICAID ==
--- NOTE | 2018-12-06 15:43 | ER Document Report ---
ED Syncope and Near Syncope <KODY GILES - Last Filed: 12/06/18 18:07> - General Mode of Arrival: Medic Information source: Patient TRAVEL OUTSIDE OF THE [place] IN LAST 30 DAYS: No - HPI Patient complains to provider of: Fainting <HENRY SLAUGHTER - Last Filed: 12/06/18 18:23> - General Chief Complaint: Fainting Stated Complaint: POSSIBLE ANXIETY Time Seen by Provider: 12/06/18 15:18 Primary Care Provider: [facility] [Outside] - Follow up as needed - HPI Notes: Patient is here with complete plaints of syncope. Patient states that she recently found out that her boyfriend of 9 years with which they have a 6-year-old child has been cheating on her and potentially got another girl . Due to this she has been very stressed. She states that she was at work thinking about this and the fact that she may be a single mother and started to hyperventilate. She states she started to get tingling in her fingers and her hands and mouth and then had a brief syncopal exam. No injury. No headache. No blurred or loss vision. She states she feels much better now. No recent long trips or surgeries, leg pain or leg swing, hormone use, history of DVT or PE. Patient also states that she fell a week ago and hit her back and ribs on her table and she continues to have a lot of pain to the ribs and upper abdomen. No blood thinning medications. She also reports that she recently made comments that she was thinking about taking all of her gabapentin because she was upset about her boyfriend cheating on her. She states that she does not feel suicidal or homicidal currently and that she knows she was having an anxiety attack at that time. Patient denies any other complaints at this time. (HENRY SLAUGHTER) - Related Data Allergies/Adverse Reactions: erythromycin base [Erythromycin Base] Allergy (Mild, Verified 11/04/18 20:26) VOMITING Past Medical History - Social History Smoking Status: Current Every Day Smoker Chew tobacco use (# tins/day): No Frequency of alcohol use: None Drug Abuse: None Family History: Reviewed & Not Pertinent Patient has suicidal ideation: Yes Patient has homicidal ideation: No - Past Medical History Cardiac Medical History: Reports: Hx Hypertension Pulmonary Medical History: Reports: Hx Pneumonia Renal/ Medical History: Denies: Hx Peritoneal Dialysis Psychiatric Medical History: Reports: Hx Bipolar Disorder, Hx Depression Past Surgical History: Reports: Hx Myringotomy - Immunizations Hx Diphtheria, Pertussis, Tetanus Vaccination: Yes <HENRY SLAUGHTER - Last Filed: 12/06/18 18:23> Review of Systems - Review of Systems -: Yes All other systems reviewed and negative <HENRY SLAUGHTER - Last Filed: 12/06/18 18:23> Physical Exam <HENRY SLAUGHTER - Last Filed: 12/06/18 18:23> - Vital signs Vitals: Temp Pulse Resp BP Pulse Ox 97.3 F 76 16 156/79 H 99 12/06/18 15:10 12/06/18 15:10 12/06/18 15:10 12/06/18 15:10 12/06/18 15:10 - Notes Notes: GENERAL: alert, cooperative, nontoxic, no distress. HEAD: normocephalic, atraumatic EYES: conjunctiva pink without discharge, no external redness or swelling. EARS: no external swelling, no external redness NOSE: atraumatic, no external swelling MOUTH/THROAT: mucous membranes moist and pink, posterior pharynx without erythema, swelling, exudate. No trismus or drooling. NECK: soft, supple, full range of motion, no meningismus. CHEST: no distress, lungs clear and equal throughout. No wheezing, rales, rhonchi. CARDIAC: regular rate and rhythm, no murmur, normal capillary refill, normal pulses. No peripheral edema noted. ABDOMEN: Soft, mild tenderness to palpation along the left and right upper abdomen. No ecchymosis or bruising. Tenderness to palpation along the right posterior lateral ribs. No bruising. No ecchymosis. BACK: full range of motion, no CVA tenderness. EXTREMITIES: full range of motion of all extremities. No redness, no swelling. NEURO: alert and oriented x 3, no focal deficits, full range of motion of all extremities. PYSCH: appropriate mood, affect. Patient is cooperative. SKIN: pink, warm, dry, no rash. (HENRY SLAUGHTER) Course - Laboratory Result Diagrams: 12/06/18 15:30 12/06/18 15:30 <KODY GILES - Last Filed: 12/06/18 18:07> - Laboratory Result Diagrams: 12/06/18 15:30 12/06/18 15:30 <HENRY SLAUGHTER - Last Filed: 12/06/18 18:23> - Re-evaluation Re-evalutation: 12/06/18 17:31 Patient is now refusing to have her CTA chest as well as a CT of the abdomen and pelvis. She states that she does not need to have that done. She would like to see psych at this time so that she can be potentially discharged. She continues to deny any suicidal ideation at this time. 12/06/18 18:20 Patient is nontoxic-appearing with stable vitals. Patient here with complaints of syncopal episode while at work today. Patient apparently recently found out that her boyfriend of 9 years has been cheating on her for a long time. She started have a panic attack was hyperventilating and then had a syncopal episode. She is complaining of some chest tightness. She also reports that she had a fall a week ago is having a lot of pain in her ribs and upper abdomen. Lab work is unremarkable. I had ordered a CTA of the chest as well as CT the abdomen and pelvis due to the recent syncopal episode and injury/fall to rule out serious injury from her fall. Patient refused to have this done. She states that she is feeling better with preferred to not have that done. She den ies any suicidal ideation at this time but apparently had made comments that she was going to take all of her Neurontin because of her boyfriend cheating on her. By the time she got the ER she states that she has no thoughts of doing that. She states that she would like to go home so she can get back to work to support her daughter. Patient was seen and evaluated by psych who agrees that the pa tient is not a threat to herself or others at this time and is safe for discharge home from a psychiatric standpoint. I explained to the patient that she will need to sign out AGAINST MEDICAL ADVICE that she is not getting CTA of her chest and her CT abdomen pelvis due to her syncopal episode as well as recent injury to rule out serious source of pain or serious traumatic injury. Patient verbalized understanding of this. The patient and/or family have decided to leave against medical advice. The patient and/or family are of sound mind to make this decision. The risks of leaving were discussed with the patient and/or family who verbalized an understanding of these risks. The possibility of worsening condition, chance of increased morbidity, disability, mortality, and even were discussed. The patient and/or family still choose to leave against medical advice. Strict return instructions were given. They were also instructed to return to the emergency department for any concerns not outlined in the return instructions. (HENRY SLAUGHTER) - Vital Signs Vital signs: Temp Pulse Resp BP Pulse Ox 97.3 F 76 16 156/79 H 99 12/06/18 15:10 12/06/18 15:10 12/06/18 15:10 12/06/18 15:10 12/06/18 15:10 - Laboratory Laboratory results interpreted by me: 12/06/18 12/06/18 15:30 15:30 RDW 14.4 H Glucose 74 L Acetaminophen < 10 L Discharge <KODY GILES - Last Filed: 12/06/18 18:07> <HENRY SLAUGHTER - Last Filed: 12/06/18 18:23> - Discharge Clinical Impression: Anxiety Syncope Qualifiers: Syncope type: unspecified Qualified Code(s): R55 - Syncope and collapse Abdominal pain Qualifiers: Abdominal location: unspecified location Qualified Code(s): R10.9 - Unspecified abdominal pain Condition: Stable Disposition: AGAINST MEDICAL ADVICE Instructions: Abdominal Pain ([facility]), Anxiety ([facility]), Syncopal Episode ([facility]) Additional Instructions: You have been evaluated by the behavioral health team and have been cleared from acute psychiatric services. You are highly encouraged to follow-up with your outpatient mental health services. You have been provided a resource list of area providers including mobile crisis contact information. Anxiety The physician feels that some of your health problems are being caused by anxiety. Anxiety affects your health in many ways. Anxiety alone can cause palpitations, sweats, chest pains, abdominal pains, shortness of breath, and headaches. It contributes to ulcer disease, high blood pressure, irritable bowel syndrome, and has been shown to cause flare-ups of many other diseases. Anxiety is not a simple disorder to treat. If the anxiety is due to recent life stresses, you may simply need time to "work through" the changes. If the anxiety is due to an underlying unhappiness with yourself or due to psychiatric disturbance, professional help will be needed. Your physician can refer you for further help if needed. Anti-anxiety medication is occasionally given if the stress is acute or if you are having trouble sleeping. Chronic or frequent use of these medications is not a good idea because the body becomes reliant on it, preventing you from dealing with life's normal stresses. AT ANY TIME, IF YOUR SYMPTOMS CHANGE SIGNIFICANTLY OR WORSEN OR YOU DEVELOP NEW SYMPTOMS, RETURN TO THE EMERGENCY DEPARTMENT IMMEDIATELY FOR RE-EVALUATION. Referrals: [facility] [Outside] - Follow up as needed [facility] [Provider Group] - Follow up as needed
[2018-12-06 15:51] LABS: ABSOLUTE BASOPHILS # (AUTO) 0.1 10^3/uL (0.0-0.2); ABSOLUTE EOSINOPHILS # (AUTO) 0.1 10^3/uL (0.0-0.6); ABSOLUTE LYMPHOCYTES (AUTO) 2.1 10^3/uL (0.5-4.7); ABSOLUTE MONOCYTES (AUTO) 0.6 10^3/uL (0.1-1.4); ABSOLUTE NEUT (AUTO) 5.9 10^3/uL (1.7-8.2); BASOPHILS % (AUTO) 0.8 % (0-2); EOSINOPHILS % (AUTO) 1.4 % (0-6); HEMATOCRIT 40.2 % (36.0-47.0); HEMOGLOBIN 13.5 g/dL (12.0-15.5); LYMPHOCYTES % (AUTO) 23.5 % (13-45); MEAN CORPUSCULAR HEMOGLOBIN 27.2 pg (27.0-33.4); MEAN CORPUSCULAR HGB CONC 33.5 g/dL (32.0-36.0); MEAN CORPUSCULAR VOLUME 81 fl (80-97); MONOCYTES % (AUTO) 7.3 % (3-13); PLATELET COUNT 405 10^3/uL (150-450); RED BLOOD COUNT 4.95 10^6/uL (3.72-5.28); RED CELL DISTRIBUTION WIDTH 14.4 % (11.5-14.0); TOTAL CELLS COUNTED % (AUTO) 100 %; WHITE BLOOD COUNT 8.8 10^3/uL (4.0-10.5)
[2018-12-06 16:12] LABS: ACETAMINOPHEN < 10 ug/mL (10-30); ALANINE AMINOTRANSFERASE 29 U/L (9-52); ALBUMIN 4.6 g/dL (3.5-5.0); ALCOHOL < 10 mg/dL (NONE DETECTED); ALKALINE PHOSPHATASE 67 U/L (38-126); ANION GAP 12 (5-19); ASPARTATE AMINO TRANSFERASE 23 U/L (14-36); BILIRUBIN,DIRECT 0.3 mg/dL (0.0-0.4); BILIRUBIN,TOTAL 0.9 mg/dL (0.2-1.3); BLOOD UREA NITROGEN 16 mg/dL (7-20); CARBON DIOXIDE 24 mmol/L (22-30); CHLORIDE 105 mmol/L (98-107); GLUCOSE 74 mg/dL (75-110); POTASSIUM 4.2 mmol/L (3.6-5.0); SALICYLATE 5.9 mg/dL (2.0-20.0); SODIUM 140.6 mmol/L (137-145); TOTAL PROTEIN 7.5 g/dL (6.3-8.2)
[2018-12-06 18:46] VITALS: BP 116/88
--- NOTE | 2018-12-08 11:54 | PSYCHOLOGICAL NOTE ---
Psych Note - Psych Note Date seen by psych provider: 12/06/18 Time seen by psych provider: 17:50 - 1805 Psych Note: Reason for Consult: Anxiety Pt in with EMS post syncopal episode at work. Per EMS pt found on ground by coworker passed out. Pt states she found out her boyfriend has cheated on her and she hyperventilated and passed out. Per EMS and pt, pt sent a text to friend stating she wanted to kill herself and was going to take 12/300mg gabapentin that she has an Rx for. Pt states she takes clonipin and prozac as prescribed. Pt also admits to cutting L arm today; superficial cuts noted to L inner arm and pt states she has not cut herself in at least 2 years. Patient reports that she remembers coming to [facility] via EMS because she was "overwhelmed with the situation going on." She reports that she does suffer from panic attacks however today's felt slightly different. She disclosed that she does have an outpatient mental health provider that she sees consistently for both medication management and therapy in [facility]. She confi tito she did engage in her maladaptive coping skill of cutting, denies this was intent to truly harm herself. She reports that today's event started when she was thinking about events she just found out about, had difficulty breathing and think passing out. She reports that she has been living with her significant other for 9 years but found out today for the last 6 years he has been having an affair. She reports that they have a daughter who is 6 years old. She disclosed she plans on working extra shifts so she can start to achieve independence so he can move out. She identifies that she does have friends from work that she can rely on for assistance additionally. Patient is alert and orientated to person, place, time and circumstance. Mood is dysphoric with congruent affect. Patient denies suicidal homicidal ideation. Delusions are absent behaviors congruent with an intact reality based presentation i.e. organized and linear thought process. Eye contact was well- maintained. Conversational speech is within normal rate, tone and prosody. Intellectual abilities appear to be within the average range. Attention and concentration are currently good. Insight, judgment, impulse control are fair. No medication recommendations at this time V61.10 (Z63.0) 3 relationship distress with intimate partner Impression\\plan: Patient is cleared from acute psychiatric services. Patient is close is having a panic attack with a resulted possible fainting episode after finding out her significant other for 9 years is been having an affair for 6 years. Patient denies thoughts of wanting to harm herself or others however did engage in maladaptive coping skill of cutting. Patient has an outpatient mental health provider which she receives both medication management and therapeutic services. Patient denies thoughts of wanting to harm herself or others. Patient demonstrates forward thinking with discussing her plan to become independent to support herself and daughter. Patient is encouraged to contact her outpatient mental health provider to have additional therapeutic services during this time of high stress. Dr. Barney was consulted to care management of this patient; attending physicians in agreement with recommendations and disposition
== END 2018-12-06 18:43 | disposition left against medical advice (07) ==
LOC: ER 14:57
DX: F41.9 Anxiety disorder, unspecified (principal); R55 Syncope and collapse; R10.9 Unspecified abdominal pain; R41.9 Unspecified symptoms and signs involving cognitive functions and awareness; F17.200 Nicotine dependence, unspecified, uncomplicated; I10 Essential (primary) hypertension; Z88.3 Allergy status to other anti-infective agents; Z63.0 Problems in relationship with spouse or partner
CPT/HCPCS: 36415; 80053; 80307; 84703; 85025; 99283